=== PATIENT | male | born 1965 | race Caucasian/White ===

== ENCOUNTER → 2018-01-21 | Outpatient (CLI) | payer SELFPAY ==
[~2018-01-21] MED LIST: ACET-93 PO; ASPI-586 PO; PRAV20TA3 PO; TOPI25TA10 PO
== END ==
LOC: EDUNIT# 08:30 → CARD 08:42
PROVIDERS: ATTEND Nurse Practitioner Family
DX: R07.89 Other chest pain (principal); R06.09 Other forms of dyspnea; R00.2 Palpitations; I25.10 Atherosclerotic heart disease of native coronary artery without angina pectoris; E78.49 Other hyperlipidemia; Z86.73 Personal history of transient ischemic attack (TIA), and cerebral infarction without residual deficits
CPT/HCPCS: 93225; 93226

== ENCOUNTER 2018-01-22 06:52 | Day surgery (SDC) | payer SELFPAY ==
[2018-01-22] VITALS (9 sets, daily range): BP systolic 106–148; BP diastolic 81–94
[~2018-01-22] VITALS: Ht 172.7 cm; Wt 79.4 kg
--- OUTSIDE RECORDS SUMMARY | 2018-01-22 06:55 | XMS REPORT ---
Author Author MYRANDA RUSSELL Organization [facility] Address [address] [place] [address] Care Team Providers Care Documentation Engineer Name Role Phone WHITMORE, RUSSELL Unavailable PROBLEMS Type Condition ICD9-CM Code OIP25-IV Code Onset Dates Condition Status SNOMED Code Problem Cerebral infarction, unspecified I63.9 Active 99686058 Problem Moderate episode of recurrent major depressive disorder F33.1 Active 481776675 Problem History of [place] (myocardial infarction) I25.2 Active 085164504 Problem Severe episode of recurrent major depressive disorder, without psychotic features F33.2 Active 02150065 Problem Migraine with aura and without status migrainosus, not intractable G43.109 Active 3362017 ALLERGIES No Information ENCOUNTERS Encounter Location Date Diagnosis [facility] [address] [address] Jan, [facility] [address] [address] Nov, [facility] [id number] [place] [address] Oct, [facility] [id number] [place] [address] Oct, Cerebral infarction, unspecified I63.9 ; Moderate episode of recurrent major depressive disorder F33.1 ; Migraine with aura and without status migrainosus, not intractable G43.109 and History of [place] (myocardial infarction) I25.2 [facility] [address] [address] Oct, [facility] [address] [address] Oct, [facility] [address] [place] [address] Oct, 2017 Severe episode of recurrent major depressive disorder, without psychotic features F33.2 ; History of CVA (cerebrovascular accident) Z86.73 ; History of [place] (myocardial infarction) I25.2 and Migraine with aura and without status migrainosus, not intractable G43.109 IMMUNIZATIONS No Known Immunizations SOCIAL HISTORY Never Assessed REASON FOR VISIT intake PLAN OF CARE Activity Details Follow Up 2 Weeks Reason: VITAL SIGNS MEDICATIONS Medication Instructions Dosage Frequency Start Date End Date Duration Status Pravastatin Sodium 20 mg Orally Once a day 1 tablet 24h Oct, 30 day(s) Unknown Aspirin 81 mg Orally Once a day 1 tablet 24h Oct, 30 day(s) Unknown RESULTS No Results PROCEDURES Procedure Date Ordered Result Body Site Psych diagnostic evaluation, established patient Oct 25, 2017 INSTRUCTIONS MEDICATIONS ADMINISTERED No Known Medications MEDICAL (GENERAL) HISTORY Type Description Date Medical History stroke Surgical History No Surgical history information Hospitalization History stroke 2015
--- OUTSIDE RECORDS SUMMARY | 2018-01-22 06:55 | XMS REPORT ---
Author Author KWESI BLUNT Organization [facility] [place] Address [address] [place] [address] Care Team Providers Care Tape Librarian Name Role Phone KWESI BLUNT Unavailable PROBLEMS Type Condition ICD9-CM Code APX30-GQ Code Onset Dates Condition Status SNOMED Code Problem Cerebral infarction, unspecified I63.9 Active 49372377 Problem Moderate episode of recurrent major depressive disorder F33.1 Active 325821346 Problem History of [place] (myocardial infarction) I25.2 Active 241192631 Problem Severe episode of recurrent major depressive disorder, without psychotic features F33.2 Active 78315604 Problem Migraine with aura and without status migrainosus, not intractable G43.109 Active 0599175 ALLERGIES No Information ENCOUNTERS Encounter Location Date Diagnosis [facility] [place] [id number] [place] [address] Nov, [facility] [place] [id number] [place] [address] Oct, [facility] [place] [id number] [place] [address] Oct, Cerebral infarction, unspecified I63.9 ; Moderate episode of recurrent major depressive disorder F33.1 ; Migraine with aura and without status migrainosus, not intractable G43.109 and History of [place] (myocardial infarction) I25.2 [facility] [place] [id number] [place] [address] Oct, [facility] [place] [id number] [place] [address] Oct, [facility] [place] [id number] [place] [address] Oct, Severe episode of recurrent major depressive disorder, without psychotic features F33.2 ; History of CVA (cerebrovascular accident) Z86.73 ; History of [place] (myocardial infarction) I25.2 and Migraine with aura and without status migrainosus, not intractable G43.109 IMMUNIZATIONS No Known Immunizations SOCIAL HISTORY Never Assessed REASON FOR VISIT BH/AT phone response PLAN OF CARE VITAL SIGNS MEDICATIONS Unknown Medications RESULTS No Results PROCEDURES No Known procedures INSTRUCTIONS MEDICATIONS ADMINISTERED No Known Medications MEDICAL (GENERAL) HISTORY Type Description Date Medical History stroke Surgical History No Surgical history information Hospitalization History stroke 2015
--- OUTSIDE RECORDS SUMMARY | 2018-01-22 06:55 | XMS REPORT ---
Author Author KWESI BLUNT Organization [facility] Address [address] [place] [address] Care Team Providers Care Commercial Electrician Name Role Phone KWESI BLUNT Unavailable PROBLEMS Type Condition ICD9-CM Code HNX89-XC Code Onset Dates Condition Status SNOMED Code Problem Cerebral infarction, unspecified I63.9 Active 13836600 Problem Moderate episode of recurrent major depressive disorder F33.1 Active 442453904 Problem History of [place] (myocardial infarction) I25.2 Active 621665896 Problem Severe episode of recurrent major depressive disorder, without psychotic features F33.2 Active 77736560 Problem Migraine with aura and without status migrainosus, not intractable G43.109 Active 2876852 ALLERGIES No Known Allergies ENCOUNTERS Encounter Location Date Diagnosis [place] [id number] [place] [address] Jan, [place] [address] [address] Nov, [place] [address] [address] Nov, Migraine with aura and without status migrainosus, not intractable G43.109 and History of [place] (myocardial infarction) I25.2 [facility] [id number] [place] [address] Oct, [facility] [address] [address] Oct, Cerebral infarction, unspecified I63.9 ; Moderate episode of recurrent major depressive disorder F33.1 ; Migraine with aura and without status migrainosus, not intractable G43.109 and History of [place] (myocardial infarction) I25.2 [facility] [address] [address] Oct, [facility] [address] [facility] [id number] [address] Oct, [facility] [address] [facility] [id number] [address] Oct, Severe episode of recurrent major depressive disorder, without psychotic features F33.2 ; History of CVA (cerebrovascular accident) Z86.73 ; History of [place] (myocardial infarction) I25.2 and Migraine with aura and without status migrainosus, not intractable G43.109 IMMUNIZATIONS No Known Immunizations SOCIAL HISTORY Never Assessed REASON FOR VISIT follow up-sonaRMTracy , pt is still comlaining of having chest pains, pt states that he is still felling depressed PLAN OF CARE Activity Details Follow Up 2 Weeks Reason: VITAL SIGNS Height 5 ft 9 in in 2017-11-15 Weight 174.5 lbs 2017-11-15 Temperature 97.3 degrees Fahrenheit 2017-11-15 Heart Rate 85 bpm 2017-11-15 Respiratory Rate 18 2017-11-15 Oximetry on room air:97 % 2017-11-15 BMI 25.77 kg/m2 2017-11-15 Blood pressure systolic 120 mmHg 2017-11-15 Blood pressure diastolic 78 mmHg 2017-11-15 MEDICATIONS Medication Instructions Dosage Frequency Start Date End Date Duration Status Pravastatin Sodium 20 mg Orally Once a day 1 tablet 24h Oct, 30 day(s) Active Topamax 25 MG Orally Twice a day 1 tablet 12h 11 Nov, 2017 30 day(s) Active Aspirin 81 mg Orally Once a day 1 tablet 24h Oct, 30 day(s) Active RESULTS No Results PROCEDURES No Known procedures INSTRUCTIONS MEDICATIONS ADMINISTERED No Known Medications MEDICAL (GENERAL) HISTORY Type Description Date Medical History stroke Surgical History No Surgical history information Hospitalization History stroke 2015
--- OUTSIDE RECORDS SUMMARY | 2018-01-22 06:55 | XMS REPORT ---
Author Author KWESI BLUNT Organization [facility] Address [address] [place] [address] Care Team Providers Care Wind Field Manager Name Role Phone KWESI BLUNT Unavailable PROBLEMS Type Condition ICD9-CM Code UQP68-UV Code Onset Dates Condition Status SNOMED Code Problem Cerebral infarction, unspecified I63.9 Active 71933290 Problem Moderate episode of recurrent major depressive disorder F33.1 Active 830760142 Problem History of [place] (myocardial infarction) I25.2 Active 902204703 Problem Severe episode of recurrent major depressive disorder, without psychotic features F33.2 Active 28176296 Problem Migraine with aura and without status migrainosus, not intractable G43.109 Active 3521421 ALLERGIES No Information ENCOUNTERS Encounter Location Date Diagnosis [place] [id number] [place] [address] Jan, [place] [address] [address] Nov, [place] [address] [address] Nov, Migraine with aura and without status migrainosus, not intractable G43.109 and History of [place] (myocardial infarction) I25.2 [facility] [id number] [place] [address] Oct, [facility] [address] [address] Oct, Cerebral infarction, unspecified I63.9 ; Moderate episode of recurrent major depressive disorder F33.1 ; Migraine with aura and without status migrainosus, not intractable G43.109 and History of [place] (myocardial infarction) I25.2 [facility] [address] [address] Oct, [facility] [address] [facility] [id number] [place] [address] Oct, [facility] [address] [facility] [id number] [place] [address] Oct, Severe episode of recurrent major depressive disorder, without psychotic features F33.2 ; History of CVA (cerebrovascular accident) Z86.73 ; History of [place] (myocardial infarction) I25.2 and Migraine with aura and without status migrainosus, not intractable G43.109 IMMUNIZATIONS No Known Immunizations SOCIAL HISTORY Never Assessed REASON FOR VISIT lab results - Darrick LITTLE PLAN OF CARE VITAL SIGNS MEDICATIONS Unknown Medications RESULTS No Results PROCEDURES No Known procedures INSTRUCTIONS MEDICATIONS ADMINISTERED No Known Medications MEDICAL (GENERAL) HISTORY Type Description Date Medical History stroke Surgical History No Surgical history information Hospitalization History stroke 2015
--- OUTSIDE RECORDS SUMMARY | 2018-01-22 06:55 | XMS REPORT ---
Author Author KWESI BLUNT Organization [facility] Address [address] [place] [address] Care Team Providers Care Metal Smelter Name Role Phone KWESI BLUNT Unavailable PROBLEMS Type Condition ICD9-CM Code VTU26-FK Code Onset Dates Condition Status SNOMED Code Problem Cerebral infarction, unspecified I63.9 Active 50304323 Problem Moderate episode of recurrent major depressive disorder F33.1 Active 387657016 Problem History of [place] (myocardial infarction) I25.2 Active 410178329 Problem Severe episode of recurrent major depressive disorder, without psychotic features F33.2 Active 23689929 Problem Migraine with aura and without status migrainosus, not intractable G43.109 Active 7549362 ALLERGIES No Known Allergies ENCOUNTERS Encounter Location Date Diagnosis [facility] [id number] [place] [address] Nov, [facility] [id number] [place] [address] Oct, [facility] [id number] [place] [address] Oct, Cerebral infarction, unspecified I63.9 ; Moderate episode of recurrent major depressive disorder F33.1 ; Migraine with aura and without status migrainosus, not intractable G43.109 and History of [place] (myocardial infarction) I25.2 [facility] [id number] [place] [address] Oct, [facility] [id number] [place] [address] Oct, [facility] [id number] [place] [address] Oct, Severe episode of recurrent major depressive disorder, without psychotic features F33.2 ; History of CVA (cerebrovascular accident) Z86.73 ; History of [place] (myocardial infarction) I25.2 and Migraine with aura and without status migrainosus, not intractable G43.109 IMMUNIZATIONS No Known Immunizations SOCIAL HISTORY Never Assessed REASON FOR VISIT Establish Care-LIAM magallanes, patient states he had a stroke a couple of years ago , lately he hasn't been able to focus on things.its been hard for him to write, having really bad headaches , patient complains about using his right side from the stroke, very emotional PLAN OF CARE Activity Details Follow Up prn. 3 months or as indicated by lab Reason: VITAL SIGNS Weight 170.8 lbs 2017-10-17 Temperature 97.0 degrees Fahrenheit 2017-10-17 Heart Rate 85 bpm 2017-10-17 Respiratory Rate 18 2017-10-17 Oximetry on room air:99 % 2017-10-17 Blood pressure systolic 120 mmHg 2017-10-17 Blood pressure diastolic 74 mmHg 2017-10-17 MEDICATIONS Unknown Medications RESULTS No Results PROCEDURES Procedure Date Ordered Result Body Site COMPLETE CBC W/AUTO DIFF WBC Oct 17, 2017 LIPID PANEL Oct 17, 2017 COMPREHEN METABOLIC PANEL Oct 17, 2017 ASSAY OF FREE THYROXINE Oct 17, 2017 ASSAY THYROID STIM HORMONE Oct 17, 2017 INSTRUCTIONS MEDICATIONS ADMINISTERED No Known Medications MEDICAL (GENERAL) HISTORY Type Description Date Medical History stroke Surgical History No Surgical history information Hospitalization History stroke 2015
[2018-01-22] MEDS ORDERED: NS IV 1000 ML 1,000 ML IV SCH ×2 (07:00→10:17)
[2018-01-22] MEDS ORDERED: LIDOCAINE 1% INJ 20 ML 20 ML VIAL ONE (07:01)
[2018-01-22] MEDS ORDERED: HEParin (CATH LAB) 2,000 ML IV ONE (07:01)
[2018-01-22] MEDS ORDERED: NS IV 1000 ML 1,000 ML ONE (07:01)
[2018-01-22] MEDS ORDERED: ASPI-586 PO (07:26)
[2018-01-22] MEDS ORDERED: ACET-93 PO (07:26)
[2018-01-22] MEDS ORDERED: TOPI25TA10 PO (07:26)
[2018-01-22] MEDS ORDERED: PRAV20TA3 PO (07:26)
[2018-01-22 07:32] LABS: HEMOGLOBIN 17.8 G/DL (13.3-17.7); MEAN PLATELET VOLUME 9.8 FL (7.4-10.4); RED BLOOD COUNT 5.64 10^6/uL (4.35-5.85); RED CELL DISTRIBUTION WIDTH 14.1 % (10.0-14.5); WHITE BLOOD COUNT 10.5 10^3/uL (4.3-11.0)
[2018-01-22 07:41] LABS: PROTHROMBIN TIME PATIENT 13.4 SEC (12.2-14.7)
[2018-01-22] MEDS ORDERED: CATHETER FLUSH 10 ML SYR IV PRN (07:45)
[2018-01-22] MEDS ORDERED: FLU QUADRIvalent (5+ YOA) 2018-2019 (AFLURIA) 0.5 ML IM ONE (07:45)
[2018-01-22 07:49] LABS: ALANINE AMINOTRANSFERASE 31 U/L (0-55); ALBUMIN 4.3 GM/DL (3.2-4.5); ALKALINE PHOSPHATASE 80 U/L (40-136); BILIRUBIN,TOTAL 0.9 MG/DL (0.1-1.0); BUN/CREATININE RATIO 17; CALCIUM 9.1 MG/DL (8.5-10.1); CARBON DIOXIDE 24 MMOL/L (21-32); CHLORIDE 108 MMOL/L (98-107); CHOLESTEROL 176 MG/DL (< 200); CREATININE SERUM 0.93 MG/DL (0.60-1.30); GFR ESTIMATED > 60; GLUCOSE 85 MG/DL (70-105); HDL CHOLESTEROL 40 MG/DL (40-60); POTASSIUM 4.3 MMOL/L (3.6-5.0); SODIUM 142 MMOL/L (135-145); TOTAL PROTEIN 7.1 GM/DL (6.4-8.2); TRIGLYCERIDES 89 MG/DL (<150); VLDL CHOLESTEROL 18 MG/DL (5-40)
[2018-01-22] MEDS ORDERED: fentaNYL INJECTION 100 MCG/2 ML AMP ONE (09:37)
[2018-01-22] MEDS ORDERED: MIDAZOLAM 5 MG/5 ML (VERSED) VIAL ONE (09:37)
--- NOTE | 2018-01-22 09:51 | Cardiac Procedure Note-CS/ASA ---
Pre-Procedure Note Pre-Op Procedure Note H&P Reviewed The H&P was reviewed, patient examined and no changes noted. Date H&P Reviewed: Jan 22, 2018 Time H&P Reviewed: 09:51 Conscious Sedation Pre-Proced Time 09:51 ASA Score 3 For ASA 3 and 4: Consider anesthesia and medical clearance. Also, for patients with a history of failed moderate sedation consider anesthesia. Airway Lungs Heart ASA score ASA 1: a normal healthy patient ASA 2: a patient with a mild systemic disease (mid diabetes, controlled hypertension, obesity ASA 3: a patient with a severe systemic disease that limits activity (angina , COPD, prior Myocardial infarction) ASA 4: a patient with an incapacitating disease that is a constant threat to life (CHF, renal failure) ASA 5: a moribund patient not expected to survive 24 hrs. (ruptured aneurysm) ASA 6: a declared brain patient whose organs are being harvested. For emergent operations, add the letter E after the classification Mallampati Classification Grade 2 Sedation Plan Analgesia, Amnesia, Plan communicated to team members, Discussed options with patient/fam, Discussed risks with patient/fam The patient is an appropriate candidate to undergo the planned procedure, sedation, and anesthesia. The patient immediately re-assessed prior to indication. MIGUEL YOUNG MD FACP FAC CCDS Jan 22, 2018 09:51
--- NOTE | 2018-01-22 10:22 | Discharge Inst-Cardiology ---
Discharge Inst-Cardiac Discharge Medications Continued Medications: Acetaminophen (Acetaminophen) 500 Mg Tablet 500 MG PO PRN PRN for PAIN-MILD, TAB Aspirin (Aspir 81) 81 Mg Tablet.dr 81 MG PO DAILY, TAB Pravastatin Sodium (Pravastatin Sodium) 20 Mg Tablet 20 MG PO DAILY, TAB Topiramate (Topiramate) 25 Mg Tablet 25 MG PO BID, TAB Patient Instructions Patient Instructions: NO SMOKING OR TOBACCO USE Orders-Post D/C & Referrals Pneu Vac Indicated: Yes MIGUEL YOUNG MD FACP FAC CCDS Jan 22, 2018 10:22
--- NOTE | 2018-01-22 10:23 | Discharge Inst-Post CATH ---
Discharge Inst-CATH Post Cardiac Cath D/C Inst Follow Up/Plan F/u with Dr Parr in 3-4 weeks CARDIAC CATH DISCHARGE INSTRUCTIONS *Hold Metformin for 48 hours post heart cath. ACTIVITY * Go Home directly and rest. * Limit activity of the leg (or wrist if it was used) for 7 days including aerobics, swimming, jogging, bicycling, etc. * Restrict stair-climbing for 7 days if possible, if not, climb up with your non -cath leg, then bring together on the same step. * Avoid lifting, pushing, pulling or excessive movement of the affected extremity for 7 days. * Customary sexual activity may be resumed after 2 days-use caution not to use a position that strains or causes pain to the affected extremity. * No driving for 24 hours. * NO SMOKING. * Avoid straining for bowel movements for 7 days. * Gentle walking on level ground is allowed. * Returning to work will depend on the type of procedure and the results. Your doctor will discuss this with you. CALL YOUR DOCTOR FOR ANY OF THE FOLLOWING: *If bleeding from the puncture site occurs- Apply gentle pressure to site with clean cloth and call your doctor or EMS. * If a knot or lump forms under the skin, increases in size, or causes pain. * If bruising appears to be worsening or moving further down your leg instead of disappearing. * Temperature above 101 F. CARE OF YOUR GROIN INCISION; * Bruising or purple discoloration of the skin near the puncture site is common. * You may shower only, no bathtub bathing for 5 days. Be careful to avoid slipping as your leg may feel stiff. * If a closure device was used on your femoral artery, please see the attached guide regarding care of the device and your leg. * Leave the dressing on, until removed by office staff. CARE OF YOUR WRIST INCISION; * Bruising or purple discoloration of the skin near the puncture site is common. * You may shower. * DO NOT submerge wrist. * Leave dressing on, until removed by office staff.. MIGUEL PARR MD [facility] CCDS Jan 22, 2018 10:23
[2018-01-22] MEDS ORDERED: PATIENT MAY USE OWN MEDS, ALL PO SCH (10:30)
--- NOTE | 2018-01-22 11:41 | CARDIAC CATHETERIZATION ---
DATE OF SERVICE: CARDIAC CATHETERIZATION REPORT The patient is a 53-year-old man with a known history of coronary artery disease. He reports a history of a myocardial infarction in 2010 in [facility]. He states that he had four stents placed at that time. He has been experiencing chest discomfort radiating to the left shoulder. He has multiple coronary artery disease risk factors. Cardiac catheterization was carried out today after having obtained an informed consent. PROCEDURE: He was brought to the cardiac catheterization laboratory in a fasting state. Right groin was prepared and draped in the usual sterile fashion. Lidocaine 1% for local anesthesia. Modified Seldinger technique was used to advance a 5-Zimbabwean sheath in the right femoral artery, 5-Zimbabwean JL4 catheter for the left coronary angiography, 5-Zimbabwean JR4 catheter for right coronary angiography, 5-Zimbabwean pigtail catheter was used for left heart catheterization and left ventricular angiography. Pigtail was pulled back to the aortic root and aortic root angiography was performed. Pigtail was removed. Angiography of the right femoral artery was carried out through the sheath. Mynx was used to achieve hemostasis. He tolerated the procedure well. HEMODYNAMICS: Left ventricular end-diastolic pressure following coronary angiography was 12 mmHg. There was no significant pressure gradient on pullback across the aortic valve. Ascending aortic pressure was 114/78 with a mean of 81 mmHg. CORONARY ANGIOGRAPHY: Left main coronary artery does not exhibit significant disease. Left anterior descending artery does not exhibit significant obstructive disease. There is mild haziness in the proximal portion of the left anterior descending artery. No distinct stents are visualized. Left circumflex artery does not exhibit significant disease. Right coronary artery is dominant and does not exhibit significant disease. LEFT VENTRICULAR ANGIOGRAPHY: Left ventricular angiography was carried out in the right anterior oblique projection. There is apical dyskinesis. There appears to be organized/scarred thrombus in the apex. Global left ventricular systolic function is well preserved. Left ventricular ejection fraction estimated to be 50% to 55%. There does not appear to be significant mitral regurgitation. AORTIC ARCH ANGIOGRAPHY: Aortic root angiography did not indicate any significant thoracic aortic aneurysm or dissection. No significant aortic regurgitation is identified. CONCLUSIONS: 1. Mild coronary artery disease. 2. Evidence of an apical myocardial infarction with apical dyskinesis. 3. Well-preserved global left ventricular systolic function with an ejection fraction of 50 to 55%. 4. Normal left ventricular end-diastolic pressure. DISCUSSION AND RECOMMENDATIONS: Based on the results of the study, it appears appropriate to continue a conservative approach. Risk factor modification has been reviewed with him. He has been advised compliance with medications. He has been advised immediate and complete cessation of tobacco use. Job ID: [id number] DocumentID: [id number] Dictated Date: 01/22/2018 10:15:13 Dry Chain Puller Date: 01/22/2018 11:41:04 Dictated By: MIGUEL YOUNG MD, MA, FACP, FACC, MTDD
== END 2018-01-22 13:48 | disposition home or self-care (01) ==
LOC: CATH 06:52 → SDC 10:33 → CATH 13:48
PROVIDERS: ATTEND Internal Medicine Cardiovascular Disease
DX: I25.10 Atherosclerotic heart disease of native coronary artery without angina pectoris (principal); R00.2 Palpitations; R06.09 Other forms of dyspnea; E78.49 Other hyperlipidemia; F17.210 Nicotine dependence, cigarettes, uncomplicated; I25.2 Old myocardial infarction; Z86.73 Personal history of transient ischemic attack (TIA), and cerebral infarction without residual deficits; Z79.82 Long term (current) use of aspirin; Z79.899 Other long term (current) drug therapy
CPT/HCPCS: 36415; 36430; 80053; 80061; 85027; 85610; 85730; 87081; 93458; 93567

== ENCOUNTER 2018-02-01 14:41 | Emergency (ER) | payer SELFPAY ==
[~2018-02-01] VITALS: Ht 175.3 cm; Wt 79.4 kg
--- NOTE | 2018-02-01 15:09 | ED Integumentary General ---
General Chief Complaint: Skin/Wound Problems Stated Complaint: WOUND INFECTION Nursing Triage Note: PT HAD A HEART CATH DONE APPX 1 WEEK AGO. STATES THE AREA HAS DEVELOPED A KNOT AND BRUISING. DENIES ANY OTHER COMPLAINTS. Source: patient Exam Limitations: no limitations History of Present Illness Date Seen by Provider: Feb 01, 2018 Time Seen by Provider: 15:08 Initial Comments To ER with a tender nodule in the right groin. He had a heart catheter done here using the right groin as access one week ago. She had a small nodule at the time states it's become more tender and a little bit larger since then. No lightheadedness fevers or abdominal pain. Timing/Duration: just prior to arrival Severity: moderate Location: extremities (right groin) Possible Cause: no cause identified Allergies and Home Medications Allergies Coded Allergies: No Known Drug Allergies (Unverified , 01/22/18) Home Medications Acetaminophen 500 Mg Tablet, 500 MG PO PRN PRN for PAIN-MILD, (Reported) Aspirin 81 Mg Tablet.dr, 81 MG PO DAILY, (Reported) Pravastatin Sodium 20 Mg Tablet, 20 MG PO DAILY, (Reported) Topiramate 25 Mg Tablet, 25 MG PO BID, (Reported) Patient Home Medication List Home Medication List Reviewed: Yes Review of Systems Review of Systems Constitutional: see HPI; No chills, No fever EENTM: see HPI Respiratory: no symptoms reported Cardiovascular: no symptoms reported Genitourinary: no symptoms reported Musculoskeletal: see HPI Skin: no symptoms reported Psychiatric/Neurological: No Symptoms Reported Endocrine: No Symptoms Reported Hematologic/Lymphatic: No Symptoms Reported Past Chopbqw-Qsvktz-Xyirar Hx Patient Social History Type Used: Cigarettes Recent Foreign Travel: No Contact w/Someone Who Travel: No Recent Infectious Disease Expo: No Past Medical History Surgeries: Yes Coronary Stent Respiratory: No Cardiac: Yes Coronary Artery Disease, Heart Attack Neurological: Yes Stroke Gastrointestinal: No Endocrine: No Cancer: No Physical Exam Vital Signs Vital Signs - First Documented 02/01/18 14:50 Temp 98.2 Pulse 87 Resp 16 B/P (MAP) 127/79 (95) Pulse Ox 95 O2 Delivery Room Air Capillary Refill : Less Than 3 Seconds General Appearance: WD/WN, no apparent distress Neck: non-tender, full range of motion Respiratory: no respiratory distress, no accessory muscle use Neurologic/Psychiatric: alert, normal mood/affect Skin: normal color, warm/dry, other (minimal yellow/ brownish discoloration of the right groin at the puncture site consistent with resolving ecchymosis. There is a nickel-sized nodule in the right groin tender to palpation but without pulsatile flow palpable. We'll obtain an ultrasound.) Progress/Results/Core Measures Results/Orders My Orders Orders - DIANELYS NARVAEZ APRN [facility] Soft Tissue Unlisted [id number] (02/01/18 15:07) Vital Signs/I&O 02/01/18 02/01/18 14:50 16:17 Temp 98.2 98.2 Pulse 87 87 Resp 16 16 B/P (MAP) 127/79 (95) 127/79 (95) Pulse Ox 95 95 O2 Delivery Room Air Blood Pressure Mean: 95 Departure Impression Primary Impression: Hematoma Disposition: 01 HOME, SELF-CARE Condition: Stable Departure-Patient Inst. Decision time for Depature: 15:11 Referrals: NO,LOCAL PHYSICIAN (PCP/Family) Primary Care Physician Patient Instructions: HEMATOMA Add. Discharge Instructions: 1. This will resolve over the next 2-3 weeks. Return to ER for any lightheadedness passing out severe pain or other concerns. All discharge instructions reviewed with patient and/or family. Voiced understanding. DIANELYS NARVAEZ APRN Feb 01, 2018 15:09
[2018-02-01 16:17] VITALS: BP 127/79
--- NOTE | 2018-02-01 20:53 | Diagnostic Imaging Report ---
INDICATION: Wound infection in the right inguinal region. Patient is status post heart catheterization one week ago. EXAMINATION: Sonographic interrogation of the right groin was performed. FINDINGS: Lymph nodes are identified in the right groin. The largest measures 1.3 x 0.5 x 2.7 cm. Second lymph node measures 1.7 x 0.5 x 0.7 cm. These have fatty tiarra and thin cortex. No fluid collections are seen. IMPRESSION: Mildly prominent right groin lymph nodes. The study is otherwise unremarkable. Dictated by: Dictated on workstation # [id number]
== END 2018-02-01 16:18 | disposition home or self-care (01) ==
LOC: EDUNIT# 14:41 → ER 14:43
DX: M79.81 Nontraumatic hematoma of soft tissue (principal); I25.10 Atherosclerotic heart disease of native coronary artery without angina pectoris; I25.2 Old myocardial infarction; Z79.82 Long term (current) use of aspirin; Z95.5 Presence of coronary angioplasty implant and graft; Z86.73 Personal history of transient ischemic attack (TIA), and cerebral infarction without residual deficits
CPT/HCPCS: 76999; 99282

== ENCOUNTER 2019-07-25 02:04 | Inpatient (IN) | payer SELFPAY ==
[2019-07-25] VITALS (17 sets, daily range): BP systolic 87–151; BP diastolic 53–94
[~2019-07-25] VITALS: Ht 170 cm; Wt 79.7 kg
--- NOTE | 2019-07-25 02:10 | NUR ---
PT TO CT ACCOMPANIED BY HS/RAD.
--- OUTSIDE RECORDS SUMMARY | 2019-07-25 02:11 | XMS REPORT | Continuity of Care Document ---
Author Organization Unknown Address Unknown Phone Unavailable Allergies Active Description Code Type Severity Reaction Onset Reported/Identified Relationship to Patient Clinical Status Yes No Known Drug Allergies No Kno wn Drug Allergies Drug Allergy Unknown N/A 11/17/2009 Yes No Known Allergies Drug Allerg y 2012 Yes No Known Drug Allergies Drug Allergy 2012 Yes No Known Food Allergies Food Allergy 2012 Yes No Known Drug Allergies [id number] Drug Allergy Unknown N/A 01/22/2018 Medications There is no data. Problems Date Dx Coded Attending Type Code Diagnosis Diagnosed By 10/06/2015 Eugenie VINSON Rosario P F E78. 5 HYPERLIPIDEMIA, UNSPECIFIED 10/06/2015 Eugenie VINSON Rosario P F F12. 10 CANNABIS ABUSE, UNCOMPLICATED 10/06/2015 Eugenie VINSON Rosario P F F17. 200 NICOTINE DEPENDENCE, UNSPECIFIED, UNCOMPLICATED 10/06/2015 Eugenie VINSON, Rosario P F F43. 8 OTHER REACTIONS TO SEVERE STRESS 10/06/2015 Eugenie VINSON Rosario P F I25. 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 9 CEREBRAL INFARCTION, UNSPECIFIED 10/06/2015 Eugenie VINSON Rosario P F R00. 1 BRADYCARDIA, UNSPECIFIED 10/06/2015 Eugenie VINSON Rosario P F R47. 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 01/22/2018 HECTOR VINSON FACC, ALI FACP CCDS Ot Z79.899 OTHER PENITENTIARY (CURRENT) DRUG THERAPY 01/22/2018 HECTOR VINSON FACC, ALI FACP CCDS Ot Z86.73 PRSNL HX OF TIA (TIA), AND CEREB INFRC W 01/23/2018 BAIMA, ALESHA L AUTO BUMPER MECHANIC Ot E78.49 OTHER HYPERLIPIDEMIA 01/23/2018 BAIMA, ALESHA L AUTO BUMPER MECHANIC Ot I25.10 ATHSCL HEART DISEASE OF [place] CORONARY 01/23/2018 BAIMA, ALESHA L AUTO BUMPER MECHANIC Ot R00.2 PALPITATIONS 01/23/2018 BAIMA, ALESHA L AUTO BUMPER MECHANIC Ot R06.09 OTHER FORMS OF DYSPNEA 01/23/2018 BAIMA, ALESHA L AUTO BUMPER MECHANIC Ot R07.89 OTHER CHEST PAIN 01/23/2018 BAIMA, ALESHA L AUTO BUMPER MECHANIC Ot Z86.73 PRSNL HX OF TIA (TIA), AND CEREB INFRC W 01/23/2018 BAIMA, ALESHA L AUTO BUMPER MECHANIC Ot E78.49 OTHER HYPERLIPIDEMIA 01/23/2018 BAIMA, ALESHA L AUTO BUMPER MECHANIC Ot I25.10 ATHSCL HEART DISEASE OF [place] CORONARY 01/23/2018 BAIMA, ALESHA L AUTO BUMPER MECHANIC Ot R00.2 PALPITATIONS 01/23/2018 BAIMA, ALESHA L AUTO BUMPER MECHANIC Ot R06.09 OTHER FORMS OF DYSPNEA 01/23/2018 BAIMA, ALESHA L AUTO BUMPER MECHANIC Ot R07.89 OTHER CHEST PAIN 01/23/2018 BAIMA, ALESHA L AUTO BUMPER MECHANIC Ot Z86.73 PRSNL HX OF TIA (TIA), AND CEREB INFRC W 02/01/2018 BAIMA, ALESHA L AUTO BUMPER MECHANIC Ot E78.49 OTHER HYPERLIPIDEMIA 02/01/2018 BAIMA, ALESHA L AUTO BUMPER MECHANIC Ot I25.10 ATHSCL HEART DISEASE OF [place] CORONARY 02/01/2018 BAIMA, ALESHA L AUTO BUMPER MECHANIC Ot R00.2 PALPITATIONS 02/01/2018 BAIMA, ALESHA L AUTO BUMPER MECHANIC Ot R06.09 OTHER FORMS OF DYSPNEA 02/01/2018 BAIMA, ALESHA L AUTO BUMPER MECHANIC Ot R07.89 OTHER CHEST PAIN 02/01/2018 ALESHA SHORT AUTO BUMPER MECHANIC Ot Z86.73 PRSNL HX OF TIA (TIA), AND CEREB INFRC W 02/01/2018 ALESHA SHORT AUTO BUMPER MECHANIC Ot E78.49 OTHER HYPERLIPIDEMIA 02/01/2018 ALESHA SHORT AUTO BUMPER MECHANIC Ot I25.10 ATHSCL HEART DISEASE OF [place] CORONARY 02/01/2018 ALESHA SHORT AUTO BUMPER MECHANIC Ot R00.2 PALPITATIONS 02/01/2018 ALESHA SHORT AUTO BUMPER MECHANIC Ot R06.09 OTHER FORMS OF DYSPNEA 02/01/2018 ALESHA SHORT AUTO BUMPER MECHANIC Ot R07.89 OTHER CHEST PAIN 02/01/2018 ALESHA SHORT AUTO BUMPER MECHANIC Ot Z86.73 PRSNL HX OF TIA (TIA), AND CEREB INFRC W 02/01/2018 DIANELYS NARVAEZ APRN Ot I25.10 ATHSCL HEART DISEASE OF [place] CORONARY 02/01/2018 DIANELYS NARVAEZ APRN Ot I25 .2 OLD MYOCARDIAL INFARCTION 02/01/2018 DIANELYS NARVAEZ APRN Ot M79.81 NONTRAUMATIC HEMATOMA OF SOFT TISSUE 02/01/2018 DIANELYS NARVAEZ APRN Ot R10.31 RIGHT LOWER QUADRANT PAIN 02/01/2018 DIANELYS NARVAEZ APRN Ot Z79.82 PENITENTIARY (CURRENT) USE OF ASPIRIN 02/01/2018 DIANELYS NARVAEZ APRN Ot Z86.73 PRSNL HX OF TIA (TIA), AND CEREB INFRC W 02/01/2018 DIANELYS NARVAEZ APRN Ot Z95 .5 PRESENCE OF CORONARY ANGIOPLASTY IMPLANT 02/07/2018 DIANELYS NARVAEZ APRN Ot I25.10 ATHSCL HEART DISEASE OF [place] CORONARY 02/07/2018 DIANELYS NARVAEZ APRN Ot I25 .2 OLD MYOCARDIAL INFARCTION 02/07/2018 DIANELYS NARVAEZ APRN Ot M79.81 NONTRAUMATIC HEMATOMA OF SOFT TISSUE 02/07/2018 DIANELYS NARVAEZ APRN Ot R10.31 RIGHT LOWER QUADRANT PAIN 02/07/2018 DIANELYS NARVAEZ APRN Ot 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 02/07/2018 DIANELYS NARVAEZ APRN Ot Z86.73 PRSNL HX OF TIA (TIA), AND CEREB INFRC W 02/07/2018 DIANELYS NARVAEZ APRN Ot Z95 .5 PRESENCE OF CORONARY ANGIOPLASTY IMPLANT 02/28/2018 BAIALESHA LITTLE L AUTO BUMPER MECHANIC Ot E78.49 OTHER HYPERLIPIDEMIA 02/28/2018 BAIMA ALESHA L AUTO BUMPER MECHANIC Ot I25.10 ATHSCL HEART DISEASE OF [place] CORONARY 02/28/2018 BAIMAALESHA L AUTO BUMPER MECHANIC Ot R00.2 PALPITATIONS 02/28/2018 BAIMA, ALESHA L AUTO BUMPER MECHANIC Ot R06.09 OTHER FORMS OF DYSPNEA 02/28/2018 BAIMA, ALESHA L AUTO BUMPER MECHANIC Ot R07.89 OTHER CHEST PAIN 02/28/2018 BAIMA, ALESHA L AUTO BUMPER MECHANIC Ot Z86.73 PRSNL HX OF TIA (TIA), AND CEREB INFRC W 03/11/2018 BAIMAALESHA AUTO BUMPER MECHANIC Ot E78.49 OTHER HYPERLIPIDEMIA 03/11/2018 BAIMA ALESHA L AUTO BUMPER MECHANIC Ot I25.10 ATHSCL HEART DISEASE OF [place] CORONARY 03/11/2018 BAIMA ALESHA L AUTO BUMPER MECHANIC Ot R00.2 PALPITATIONS 03/11/2018 BAIMA, ALESHA L AUTO BUMPER MECHANIC Ot R06.09 OTHER FORMS OF DYSPNEA 03/11/2018 BAIMA, ALESHA L AUTO BUMPER MECHANIC Ot R07.89 OTHER CHEST PAIN 03/11/2018 BAISIDNEY ALESHA L AUTO BUMPER MECHANIC Ot Z86.73 PRSNL HX OF TIA (TIA), AND CEREB INFRC W 03/12/2018 DIANELYS NARVAEZ APRN Ot I25.10 ATHSCL HEART DISEASE OF [place] CORONARY 03/12/2018 DIANELYS NARVAEZ APRN Ot I25 .2 OLD MYOCARDIAL INFARCTION 03/12/2018 DIANELYS NARVAEZ APRN Ot M79.81 NONTRAUMATIC HEMATOMA OF SOFT TISSUE 03/12/2018 DIANELYS NARVAEZ APRN Ot R10.31 RIGHT LOWER QUADRANT PAIN 03/12/2018 DIANELYS NARVAEZ APRN Ot 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 03/12/2018 DIANELYS NARVAEZ APRN Ot Z86.73 PRSNL HX OF TIA (TIA), AND CEREB INFRC W 03/12/2018 DIANELYS NARVAEZ APRN Ot Z95 .5 PRESENCE OF CORONARY ANGIOPLASTY IMPLANT Procedures Code Description Performed By Blul garcia On [id number] IN [facility] THROMBOLYTIC IN PERIPH VEIN, PERC Eugenie MD, Rosario P 10/06/2015 Results Test Result Range CBC W/DIFF - 10/06/15 21:45 BASOPHIL # 0.1 k/cumm 0.0-0.2 BASOPHIL % 1 % 0-1 EOSINOPHIL # 0.5 k/cumm 0.1-0.5 EOSINOPHIL % 5 % 2-4 GRANULOCYTE # 6.2 k/cumm 2.0-9.0 GRANULOCYTE % 57 % 50-75 LYMPHOCYTE # 3.0 k/cumm 1.0-4.0 LYMPHOCYTE % 28 % 20-30 MEAN CELL HGB 31.2 pg 27.0-33.0 MEAN CELL HGB CONCENTRATION 35.5 g/dL 32 .0-37.0 MEAN CELL VOLUME 87.9 fl 80.0-100.0 MONOCYTE # 1.1 k/cumm 0.1-1.0 MONOCYTE % 10 % 4-6 RED BLOOD CELL 5.80 m/cumm 4.00-6.00 RED CELL DISTRIBUTION WIDTH 14.1 % 11 .0-15.6 WHITE BLOOD CELL 10.9 k/cumm 5.0-10.0 HEMOGLOBIN 18.1 gm/dL 14.0-18.0 HEMATOCRIT 51.0 % 40.0-54.0 PLATELET COUNT 241 k/cumm 150-400 PROTHROMBIN TIME WITH INR - 10/06/15 21: 45 INTERNATIONAL NORMAL RATIO 0.9 0.9 -1.1 PROTHROMBIN TIME 10.4 sec 10.0-12.9 ACETAMINOPHEN (TYLENOL) - 10/06/15 21:45 ACETAMINOPHEN (TYLENOL) < 2 mcg/mL 10-30 SALICYLATE (ASPIRIN) - 10/06/15 21:45 SALICYLATE 3.0 mg/dL 2.8-29.0 CHEM/HEM PROFILE-BEDSIDE - 10/06/15 21:4 6 POTASSIUM 4.1 mmol/L 3.5-5.3 METHOD Bedside ANION GAP 18 mmol/L 10-20 METHOD Bedside GLUCOSE 94 mg/dL 70-99 BLOOD UREA NITROGEN 22 mg/dL 7-20 CREATININE 1.1 mg/dL 0.7-1.3 HEMOGLOBIN 17.7 gm/dL 14.0-18.0 HEMATOCRIT 52.0 % 40.0-54.0 SODIUM 141 mmol/L 135-148 CHLORIDE 99 mmol/L 98-110 CARBON DIOXIDE 28 mmol/L 21-32 CALCIUM IONIZED 4.5 mg/dL 4.5-5.3 TROPONIN I BEDSIDE - 10/06/15 21:48 METHOD Bedside TROPONIN I < 0.04 ng/mL < 0.11 UR DRUGS OF ABUSE SCREEN - 10/06/15 23:5 6 UR AMPHETAMINES SCREEN NEG (<1000 ng/mL) NEGATIVE UR BARBITURATE SCREEN NEG (< 200 ng/mL) NEGATIVE DRUGS OF ABUSE SCREEN COMMENT UR OPIATES SCREEN NEG (< 300 ng/mL) NE GATIVE UR PHENCYCLIDINE (PCP) SCREEN NEG (< 25 ng/mL) NEGATIVE UR CANNABINOIDS (THC) SCREEN POS (> 50 ng/mL) NEGATIVE UR COCAINE METABOLITE SCREEN NEG (< 300 ng/mL) NEGATIVE UR METHADONE SCREEN NEG (< 300 ng/mL) NEGATIVE UR BENZODIAZEPINE SCREEN NEG (< 200 ng/mL) NEGATIVE URINALYSIS, ROUTINE - 10/07/15 00:07 UA LEUKOCYTE ESTERASE DIPSTICK NEGATIVE NEGATIVE UA NITRITE DIPSTICK NEGATIVE NEGATIVE UA PROTEIN DIPSTICK NEGATIVE NEGATIVE UA GLUCOSE DIPSTICK NEGATIVE NEGATIVE UA KETONE DIPSTICK NEGATIVE NEGATIVE UA UROBILINOGEN DIPSTICK NORMAL ASHLEY L UA BILIRUBIN DIPSTICK NEGATIVE NEGATIVE UA BLOOD DIPSTICK TRACE NEGATIVE UA SPECIFIC GRAVITY 1.020 1.015-1.02 5 UR PH 6.5 5.0-7.0 UA MICROSCOPIC - 10/07/15 00:07 UA RBC 0-3 rbc/hpf 0 - 3 UA VOLUME FOR EXAM 12.0 mL (12mL STD) UA WBC 0 wbc/hpf 0 - 5 CBC W/DIFF - 10/07/15 04:24 EOSINOPHIL # 0.5 k/cumm 0.1-0.5 EOSINOPHIL % 4 % 2-4 GRANULOCYTE # 7.7 k/cumm 2.0-9.0 GRANULOCYTE % 67 % 50-75 LYMPHOCYTE # 2.2 k/cumm 1.0-4.0 LYMPHOCYTE % 19 % 20-30 MEAN CELL HGB 31.5 pg 27.0-33.0 MEAN CELL HGB CONCENTRATION 36.0 g/dL 32 .0-37.0 MEAN CELL VOLUME 85.0 fl 80.0-100.0 MONOCYTE # 1.1 k/cumm 0.1-1.0 MONOCYTE % 10 % 4-6 RED BLOOD CELL 5.39 m/cumm 4.00-6.00 RED CELL DISTRIBUTION WIDTH 13.8 % 11 .0-15.6 WHITE BLOOD CELL 11.5 k/cumm 5.0-10.0 HEMOGLOBIN 16.5 gm/dL 14.0-18.0 HEMATOCRIT 45.8 % 40.0-54.0 PLATELET COUNT 231 k/cumm 150-400 HEMOGLOBIN A1C - 10/07/15 04:24 HEMOGLOBIN A1C 5.0 % < 5.7 METABOLIC PANEL, BASIC - 10/07/15 04:24 POTASSIUM 4.1 mmol/L 3.5-5.3 EST GFR (MDRD) > 60 mL/min > 59 ANION GAP 6 mmol/L 5-15 EST CrCl (CG) > 60 mL/min > 59 GLUCOSE 86 mg/dL 70-99 CALCIUM 8.5 mg/dL 8.5-10.1 BLOOD UREA NITROGEN 15 mg/dL 7-20 CREATININE 0.9 mg/dL 0.7-1.3 SODIUM 140 mmol/L 135-148 CHLORIDE 108 mmol/L 98-110 CARBON DIOXIDE 26 mmol/L 21-32 LIPID PANEL - 10/07/15 04:24 CHOLESTEROL/HDL RATIO 4.3 < 5.0 LDL CHOLESTEROL 117 mg/dL < 100 VLDL CHOLESTEROL 16 mg/dL < 30 TRIGLYCERIDES 78 mg/dL < 150 CHOLESTEROL 173 mg/dL < 200 HDL CHOLESTEROL 40 mg/dL > 39 MAGNESIUM - 10/07/15 04:24 MAGNESIUM 2.0 mg/dL 1.8-2.4 THYROID STIM HORMONE (TSH) - 10/07/15 04 :24 THYROID STIM HORMONE (TSH) 3.94 uIU/mL 0 .34-4.82 ALCIDES COMPREHENSIVE PROFILE - 10/07/15 15: 37 AB CHROMATIN <0.2 AI 0.0-0.9 AB PAPER MACHINE SUPERVISOR <0.2 AI 0.0-0.9 AB SM <0.2 AI 0.0-0.9 AB SSA < 0.2 AI 0.0-0.9 AB SSB < 0.2 AI 0.0-0.9 AB ANTI-CENTROMERE B <0.2 AI 0.0-0.9 AB DNA DOUBLE STRAND 1 IU/mL 0-9 AB SCL-70 <0.2 AI 0.0-0.9 AB MARCOS-1 <0.2 AI 0.0-0.9 ALCIDES COMMENT Note () CALCIUM IONIZED - 10/08/15 04:15 CALCIUM IONIZED 4.6 mg/dL 4.5-5.3 CBC W/DIFF - 10/08/15 04:15 BASOPHIL # 0.0 k/cumm 0.0-0.2 BASOPHIL % 1 % 0-1 EOSINOPHIL # 0.5 k/cumm 0.1-0.5 EOSINOPHIL % 6 % 2-4 GRANULOCYTE # 4.8 k/cumm 2.0-9.0 GRANULOCYTE % 56 % 50-75 LYMPHOCYTE # 2.3 k/cumm 1.0-4.0 LYMPHOCYTE % 27 % 20-30 MEAN CELL HGB 31.3 pg 27.0-33.0 MEAN CELL HGB CONCENTRATION 36.4 g/dL 32 .0-37.0 MEAN CELL VOLUME 86.1 fl 80.0-100.0 MONOCYTE # 0.9 k/cumm 0.1-1.0 MONOCYTE % 11 % 4-6 RED BLOOD CELL 5.24 m/cumm 4.00-6.00 RED CELL DISTRIBUTION WIDTH 13.7 % 11 .0-15.6 WHITE BLOOD CELL 8.6 k/cumm 5.0-10.0 HEMOGLOBIN 16.4 gm/dL 14.0-18.0 HEMATOCRIT 45.1 % 40.0-54.0 PLATELET COUNT 200 k/cumm 150-400 RENAL FUNCTION PANEL - 10/08/15 04:15 POTASSIUM 4.0 mmol/L 3.5-5.3 EST GFR (MDRD) > 60 mL/min > 59 ANION GAP 6 mmol/L 5-15 EST CrCl (CG) > 60 mL/min > 59 GLUCOSE 87 mg/dL 70-99 CALCIUM 8.6 mg/dL 8.5-10.1 BLOOD UREA NITROGEN 12 mg/dL 7-20 CREATININE 0.8 mg/dL 0.7-1.3 SODIUM 139 mmol/L 135-148 CHLORIDE 108 mmol/L 98-110 CARBON DIOXIDE 25 mmol/L 21-32 ALBUMIN 3.4 gm/dL 3.4-5.0 PHOSPHORUS 2.6 mg/dL 2.5-4.9 MAGNESIUM - 10/08/15 04:15 MAGNESIUM 2.0 mg/dL 1.8-2.4 THROMBOPHILIA PROFILE, STROKE - 10/08/15 04:15 DILUTE MAYA VIPER VENOM TIME NEGATIVE NEGATIVE SILICA CLOTTING TIME NEGATIVE NEGATIVE BETA-2 GLYCOPROTEIN I AB IGA < 9 0 -25 BETA-2 GLYCOPROTEIN I AB IGG < 9 0 -20 BETA-2 GLYCOPROTEIN I AB IGM < 9 0 -32 AB CARDIOLIPIN IGA <9 APL U/mL 0-11 AB CARDIOLIPIN IGG <9 GPL U/mL 0-14 AB CARDIOLIPIN IGM <9 MPL U/mL 0-12 FIBRINOGEN 253 mg/dL 200-400 FACTOR 8 ACTIVITY 168.3 % act 63-177 [place] FACTOR ANTIGEN 181 % 44-218 PLASMINOGEN ACTIVATOR INHIBIT 7.0 IU/mL 0-27 LIPOPROTEIN (a) 9 nmol/L <75 HOMOCYSTEINE, PLASMA 13.9 mcmol/L 3.7-13 .9 GLUCOSE (POC) - 10/09/15 05:44 GLUCOSE (POC) 101 mg/dL 70-99 CBC - 10/17/17 14:15 WHITE BLOOD CELL COUNT 9.1 Thousand/uL 3 .8-10.8 RED BLOOD CELL COUNT 5.93 Million/uL 4.2 0-5.80 HEMOGLOBIN 18.5 g/dL 13.2-17.1 HEMATOCRIT 52.9 % 38.5-50.0 MCV 89.2 fL 80.0-100.0 MCH 31.2 pg 27.0-33.0 MCHC 35.0 g/dL 32.0-36.0 RDW 12.6 % 11.0-15.0 PLATELET COUNT 196 Thousand/uL 140-400 MPV 10.4 fL 7.5-12.5 ABSOLUTE NEUTROPHILS 5979 cells/uL 1500- 7800 ABSOLUTE LYMPHOCYTES 2157 cells/uL 850-3 900 ABSOLUTE MONOCYTES 701 cells/uL 200-950 ABSOLUTE EOSINOPHILS 228 cells/uL 15-500 ABSOLUTE BASOPHILS 36 cells/uL 0-200 NEUTROPHILS 65.7 % NRG LYMPHOCYTES 23.7 % NRG MONOCYTES 7.7 % NRG EOSINOPHILS 2.5 % NRG BASOPHILS 0.4 % NRG Automated blood complete blood count (he mogram) panel - 01/22/18 07:20 Blood leukocytes automated count (number/volume) 10.5 10*3/uL 4.3-11.0 Blood erythrocytes automated count (number/volume) 5.64 10*6/uL 4.35-5.85 Venous blood hemoglobin measurement (mass/volume) 17.8 g/dL 13.3-17.7 Blood hematocrit (volume fraction) 49 % 40-54 Automated erythrocyte mean corpuscular volume 87 [ foz_us] 80-99 Automated erythrocyte mean corpuscular h emoglobin (mass per erythrocyte) 32 pg 25-34 Automated erythrocyte mean corpuscular h emoglobin concentration measurement (mass/volume) 36 g/dL 32-36 Automated erythrocyte distribution width ratio 14. 1 % 10.0- 14.5 Automated blood platelet count (count/volume) 213 10*3/uL 130-400 Automated blood platelet mean volume measurement 9.8 [foz_us] 7.4-10.4 PT panel in platelet poor plasma by coag ulation assay - 01/22/18 07:20 Prothrombin time (PT) in platelet poor plasma by coagu lation assay 13.4 s 12.2-14.7 INR in platelet poor plasma or blood by coagulation as say 1.0 0.8-1.4 Activated partial thromboplastin time (a PTT) in platelet poor plasma bycoagulation assay - 01/22/18 07:20 Activated partial thromboplastin time (a PTT) in platelet poor plasma bycoagulation assay 27 s 24-35 Comprehensive metabolic panel - 01/22/18 07:20 Serum or plasma sodium measurement (moles/volume) 142 mmol/L 135-145 Serum or plasma potassium measurement (moles/volume) 4.3 mmol/L 3.6-5.0 Serum or plasma chloride measurement (moles/volume) 108 mmol/L 98-107 Carbon dioxide 24 mmol/L 21-32 Serum or plasma anion gap determination (moles/volume) 10 mmol/L 5-14 Serum or plasma urea nitrogen measurement (mass/volume ) 16 mg/dL 7-18 Serum or plasma creatinine measurement (mass/volume) 0.93 mg/dL 0.60-1.30 Serum or plasma urea nitrogen/creatinine mass ratio 17 NRG Serum or plasma creatinine measurement w ith calculation of estimated glomerular filtration rate > NRG Serum or plasma glucose measurement (mass/volume) 85 mg/dL 70-105 Serum or plasma calcium measurement (mass/volume) 9.1 mg/dL 8.5-10.1 Serum or plasma total bilirubin measurement (mass/volu me) 0.9 mg/dL 0.1-1.0 Serum or plasma alkaline phosphatase bari surement (enzymatic activity/volume) 80 U/L 40-136 Serum or plasma aspartate aminotransfera se measurement (enzymatic activity/volume) 22 U/L 5-34 Serum or plasma alanine aminotransferase measurement (enzymatic activity/volume) 31 U/L 0-55 Serum or plasma protein measurement (mass/volume) 7.1 g/dL 6.4-8.2 Serum or plasma albumin measurement (mass/volume) 4.3 g/dL 3.2-4.5 CALCIUM CORRECTED 8.9 mg/dL 8.5-10.1 Lipid 1996 panel - 01/22/18 07:20 Serum or plasma triglyceride measurement (mass/volume) 89 mg/dL <150 Serum or plasma cholesterol measurement (mass/volume) 176 mg/dL < 200 Serum or plasma cholesterol in HDL measurement (mass/v olume) 40 mg/dL 40-60 Cholesterol in LDL [mass/volume] in serum or plasma by direct assay 126 mg/dL 1-129 Serum or plasma cholesterol in VLDL measurement (mass/ volume) 18 mg/dL 5-40 Methicillin resistant Staphylococcus aur eus (MRSA) screening culture - 01/22/18 07:20 Methicillin resistant Staphylococcus aureus (MRSA) scr eening culture NEG NRG Radiology Report from [id number] on 012 06:08:00 Final ReportADMITTING DIAGNOSIS: CP/SOA r/o dissectionCTA CHEST W W/O CONTRAST - 01/06/2012 H[facility]P ON [facility] RESULT: INDICATION: Chest and back pain.TECHNIQUE: Multiple contiguous axial images were obtainedthrough the chest before and after the uneventful bolusadministration of intravenous contrast. Coronal and bilateraloblique reconstructed images were then performed.FINDINGS: There is satisfactory opacification of the pulmonaryvessels with no evidence of pulmonary embolism. The aorta isnormal. There are small mediastinal and AP lymph nodes. There isdependent atelectasis in the right lung base. There are nopulmonary nodules, masses or infiltrates. There are lowattenuating nodules in the left lobe of the liver whichindeterminate due to size however likely benign. The remainderof intra-abdominal structures is unremarkable.IMPRESSION: No acute abnormality of the chest. Specifically,there is no evidence of pulmonary embolism or aortic dissection.Probable small hepatic cyst.Dictated on workstation # [id number] BY: RICCO PAREKH II, M.D., RADIOLOGISTELECTRONICALLY SIGNED BY: RICCO PAREKH II, M.D., RADIOLOGISTD Jan 06 2012 6:38AT AIG: Jan 08 2012 6:06AS Jan 08 2012 6:06A Radiology Report from SHASHI on 22:43:00 DIAGNOSTIC ABI GING REPORT [facility] - [address] [place] [address] PHONE #: [phone] FAX #: [phone] Name: LEMUEL MEDEIROS Loc: [id number] Radiology No: : 1965 Age: 50 Sex: M Status: ADM IN Unit No: [id number] Phys: Dorina Medina Acct: [id number] Reason For Exam: cannot speak Exam Date: 10/06/2015 EXAMS: CPT CODE: [id number] CT HEAD W/O CONTRAST 77713 REASON FOR EXAM: Expressive aphasia. TIME OF EXAM: 10/06/2015 9:55 PM COMPARISON: None TECHNIQUE: Routine helical CT images of the head were obtained without intravenous contrast. FINDINGS: There is a small focus of hypodensity in the posterior right temporal lobe in Wernicke's region (image 15, series 2). There is no hemorrhagic conversion. There is effacement of the adjacent sulci without significant mass effect or midline shift. No additional areas of hypodensity are visualized in the supratentorial cerebrum or cerebellum. The ventricles are unremarkable an age-appropriate. No extra- axial fluid collections are present. No extra-axial masses visualized. The bony calvarium is intact. The visualized portions of the paranasal sinuses are clear. Mucosal retention cysts are noted in the right maxillary antrum. The remainder of the paranasal sinuses are clear. IMPRESSION: 1. Small focal region of diminished attenuation in the posterior right temporal lobe (Wernicke's region) highly concerning for acute ischemia. An MRI can be performed to further evaluate this finding. 2. No acute intracranial hemorrhage or mass. Findings were discussed with Dorina Sequeira 10/06/2015 10:07 PM approximately. I have personally reviewed these images and approved or corrected the resident physician's interpretation. at 4804 RESIDENT: BRITTANI NANCE MD Reported and signed by: RODGER FORTE MD PAGE 1 Signed Report (CONTINUED) DIAGNOSTIC IMAGING REPORT [place] [address] PHONE #: [phone] FAX #: [phone] Name: LEMUEL MEDEIROS Loc: [id number] 3 Radiology No: : 1965 Age: 50 Sex: M Status: ADM IN Unit No: [id number] Phys: Dorina Medina Acct: [id number] Reason For Exam: cannot speak Exam Date: 10/06/2015 --------- EXAMS: CPT CODE: [id number] CT HEAD W/O CONTRAST [id number] <Continued> CC: Technologist: BRENDEN CRUZ Transcribed Date/Time: 10/06/2015 (5750)[employer] Teacher: HUSSAIN Printed Date/Time: 10/06/2015 (2243) BATCH NO: N/A PAGE 2 Signed Report Radiology Report from SHASHI on 016 06:34:00 DIAGNOSTIC ABI GING REPORT [facility] - [address], [place] [address] PHONE #: [phone] FAX #: [phone] Name: LEMUEL MEDEIROS Loc: W.7204 1 Radiology No: : 1965 Age: 50 Sex: M Status: ADM IN Unit No: [id number] Phys: Dorina Medina Acct: [id number] Reason For Exam: stroke Exam Date: 10/06/2015 EXAMS: CPT CODE: [id number] CT ANGIO NECK 38110 REASON FOR EXAM: Evaluate for possible thrombus. Stroke. COMPARISON: CT head 10/06/2015. TECHNIQUE: Noncontrast enhanced images were obtained through the neck. Contrast enhanced thin section helical images were obtained from the mediastinum and to the sella with the bolus of contrast timed for the optimal opacification of the arterial structures of the neck per departmental CTA protocol; post-processing, retro reconstruction, sagittal, and coronal reformatted images of the angiographic views of the vessels were obtained and were reviewed. 3-D images were generated on an independent workstation and reviewed. FINDINGS: The noncontrast-enhanced images demonstrate no evidence of calcified atherosclerotic plaques. The visualized portions of the aortic arch demonstrates no evidence of aneurysm or dissection. No significant atherosclerosis is noted. The origin of the arch vessels is unremarkable. The brachiocephalic artery is normal in course and caliber. The right common carotid the origin is unremarkable. The right subclavian artery is normal in course and caliber. Both common carotid arteries are normal in course and caliber. Bilateral internal carotid arteries are unremarkable up to the level of the skull base. The vertebral arteries are visualized originating from the proximal subclavian arteries bilaterally and are codominant in appearance. There is no focal stenosis, dissection, or aneurysm involving the posterior circulation. The basilar artery is normal in appearance. There is no basilar tip aneurysm. The right internal jugular vein is slightly prominent. No evidence of thrombus in the major venous circulation. The osseous structures of the cervical spine demonstrate no acute abnormality. Included views through the lung apices demonstrate no focal lesion. IMPRESSION: PAGE 1 Signed Report (CONTINUED) DIAGNOSTIC IMAGING REPORT [facility] - [address] [address] PHONE #: [phone] FAX #: [phone] Name: LEMUEL MEDEIROS Loc: W.7204 1 Radiology No: : 1965 Age: 50 Sex: M Status: ADM IN Unit No: [id number] Phys: Dorina Medina Acct: [id number] Reason For Exam: alice for Exam: stroke Exam Date: 10/06/2015--------- EXAMS: CPT CODE: [id number] CT ANGIO NECK 94307 <Continued> 1. Normal appearance of the carotid circulation without thrombus or dissection. 2. Normal vertebrobasilar system. No focal abnormality 3. No AVM no aneurysm. 4. No significant atherosclerosis in the anterior or posterior circulation. I have personally reviewed these images and confirmed or corrected the resident physician's interpretation. at 0628 RESIDENT: BRITTANI NANCE MD Reported and signed by: ZACARIAS DA SILVA MD CC: Rosario Traore MD Technologist: NO SR Transcribed Date/Time: 10/07/2015 (627)[employer] Teacher: [email or web address] Printed Date/Time: 10/07/2015 (56) BATCH NO: N/A PAGE 2 Signed Report Radiology Report from SHASHI on 016 09:10:00 DIAGNOSTIC ABI GING REPORT [facility] - [address] [place] [address] PHONE #: [phone] FAX #: [phone] Name: LEMUEL MEDEIROS RAYMOND Loc: W.7204 1 Radiology No: : 1965 Age: 50 Sex: M Status: ADM IN Unit No: [id number] Phys: Dorina Medina Acct: [id number] Reason For Exam: stroke Exam Date: 10/06/2015 EXAMS: CPT CODE: [id number] CT ANGIO HEAD 21755 DATE: 10/06/2015 11:45 PM REASON FOR EXAM: Stroke COMPARISON: CT head 10/06/2015 9:54 PM. TECHNIQUE: Noncontrast enhanced images were obtained through the region of the [place]. Contrast enhanced thin section helical images were obtained through the brain with the bolus of contrast timed for the optimal opacification of the arterial structures of the [place] per departmental CTA protocol; post-processing, 3-D retro reconstruction and coronal reformatted images of the angiographic views of the vessels were obtained and were reviewed. FINDINGS: CTA brain: Both internal carotid arteries are normal in course and caliber. The internal carotid artery terminus are unremarkable bilaterally. There is normal opacification of both the anterior and middle cerebral arteries. There is no evidence of significant stenosis or aneurysm. The MCA trifurcation and the distal branch vessels are unremarkable bilaterally. There is no evidence of significant stenosis or aneurysm. The anterior communicating artery is well visualized and is unremarkable. In the posterior circulation both the vertebral arteries demonstrate a normal opacification.the vertebral arteries are codominant. Both the right and left PICA arteries are identified. The basilar artery is normal in course and caliber. The terminal branch vessels including the superior cerebellar arteries unremarkable. The posterior cerebral arteries are unremarkable in appearance demonstrating normal and symmetric flow-related enhancement. The posterior communicating arteries are not definitely visualized bilaterally. CT brain: The ventricles and cortical sulci are age-appropriate. There is no midline shift or mass-effect. No acute intra-axial hemorrhage is seen. Small hypodense focus is again noted in the posterior right temporal lobe (image 17, series 5). There is no significant increased enhancement in this region on the postcontrast sequence. No extra-axial masses or collections are present. The postcontrast images demonstrate no abnormal intra-axial enhancing focal masses. The bony calvarium is intact. The visualized paranasal sinuses are clear. PAGE 1 Signed Report (CONTINUED) DIAGNOSTIC IMAGING REPORT [facility] - [address] [address] PHONE #: [phone] FAX #: [phone] Name: LEMUEL MEDIEROS Loc: [id number] 1 Radiology No: : 1965 Age: 50 Sex: M Status: ADM IN Unit No: [id number] Phys: Dorina Medina Acct: [id number] Reason For Exam: alice for Exam: stroke Exam Date: 10/06/2015 --------- EXAMS: CPT CODE: [id number] CT ANGIO HEAD 83220 <Continued> IMPRESSION: 1. No acute thrombus or dissection involving the [place]. 2. No AVM or aneurysm of the anterior posterior circulation. 3. Small hypodense focus is again visualized in the posterior right temporal lobe which likely represents acute infarct. Findings were discussed with Renee 10/07/2015 11:45 AM approximately. I have personally reviewed these images and confirmed or corrected the resident physician's interpretation. at 0904 RESIDENT: BRITTANI NANCE MD Reported and signed by: ZACARIAS DA SILVA MD CC: Rosario Traore MD Technologist: NO SR Transcribed Date/Time: 10/07/2015 (0904)[employer] Agriculture Teacher: [email or web address] Printed Date/Time: 10/07/2015 (0910) BATCH NO: N/A PAGE 2 Signed Report Radiology Report from KATELIN on 10/07/19 16 11:47:00 DIAGNOSTIC ABI GING REPORT [facility] - [address] [address] PHONE #: [phone] FAX #: [phone] Name: LEMUEL MEDEIROS Loc: [id number] 1 Radiology No: : 1965 Age: 50 Sex: M Status: ADM IN Unit No: [id number] Phys: Ondina Charles APRN Acct: [id number] Reason For Exam: s/p tpa, stroke syndrome Exam Date: 10/07/2015 EXAMS: CPT CODE: [id number] MRI BRAIN W/O CONTR [id number] Exam: MRI brain without contrast Reason for exam: Status post TPA, stroke. Comparison: None Date of exam: Zero on October 2015 at 1010 hrs. Technique: Multiplanar, multisequence MRI the brain was obtained without contrast Findings: Focal areas of faint diffusion restriction are seen involving the left insular, inferior and middle frontal gyrus consistent with acute ischemia. No evidence of hemorrhagic conversion appreciated. Focal areas of abnormal hyperintense T2 FLAIR signal seen involving the right superior parietal lobule and inferior temporal gyrus likely the result of prior ischemia. No diffusion restriction is seen in these areas. The scattered nonspecific white matter hyperintensities are seen which could be age-related or microvascular in nature. No other focal parenchyma normality appreciated. The basilar cisterns, ventricles and sulci are unremarkable. No midline shift, mass effect, intra-or extra-axial hemorrhage appreciated. The major intracranial vasculature demonstrates a normal flow-related pattern. Moderate mucosal thickening and prominent mucous retention cysts are seen in the right maxillary antrum. There may paranasal sinuses and mastoid air cells have a normal signal. The globes, orbits, regional soft tissues and calvarium are grossly unremarkable. Impression: 1. Probable focal of ischemia involving the left insular and inferior and middle frontal gyrus. No evidence of hemorrhagic conversion. 2. Probable remote area of ischemia involving the right superior parietal lobule and right superior temporal gyrus. PAGE 1 Signed Report (CONTINUED) DIAGNOSTIC IMAGING REPORT [facility] - [address] [place] [address] PHONE #: [phone] FAX #: [phone] -------- Name: LEMUEL MEDEIROS Loc: [id number] 1 Radiology No: : 1965 Age: 50 Sex: M Status: ADM IN Unit No: [id number] Phys: Ondina Charles APRN Acct: [id number] Reason For Exam: s/p tpa, stroke syndrome Exam Date: 10/07/2015 EXAMS: CPT CODE: [id number] MRI BRAIN W/O CONTR [id number] <Continued> at 1142 Reported and signed by: TAHIR TANG MD CC: Rosario Traore MD Technologist: DYLON CELIS Transcribed Date/Time: 10/07/2015 (1142)[employer] School Agriculture Teacher: MAYTE Printed Date/Time: 10/07/2015 (2889) BATCH NO: N/A PAGE 2 Signed Report Encounters ACCT No. Visit Date/Time Discharge Status Pt. Type Provider Facility Loc./Unit Complaint [id number] 02/18/2019 16:00:00 02/18/2019 23:59: 59 CLS Outpatient JEANNIE RICHARDSON LAC [facility] [id number] 10/17/2017 13:00:00 Document Registration [id number] 10/06/2015 22:29:00 016 14:44:00 DIS Inpatient Eugenie VINSON, Rosario Soto [facility] W.10TN [id number] 02/01/2018 14:43:00 16:18:00 DIS Outpatient DIANELYS NARVAEZ APRN [facility] ER WOUND INFECTION [id number] 01/22/2018 06:52:00 13:48:00 DIS Outpatient HECTOR VINSON FACC, MIGUEL ECHEVARRIA CC DS [facility] CATH CHEST DISCOMFORT,DYSPNEA ON EXERTION,PALPITATIONS [id number] 01/21/2018 08:42:00 23:59:59 CLS Outpatient ALESHA SHORT [facility] CARD CHEST DISCOMFOR T,HEART PALPITATIONS [id number] 2012 21:14:00 01/06/20 12 03:56:00 DIS Emergency Pierre Sterling DO [facility] on [address]
[2019-07-25 02:19] LABS: BASOPHILS % (AUTO) 0 % (0-10); EOSINOPHILS # (AUTO) 0.5 10^3/uL (0.0-0.3); EOSINOPHILS % (AUTO) 5 % (0-10); HEMATOCRIT 46 % (40-54); HEMOGLOBIN 16.5 G/DL (13.3-17.7); LYMPHOCYTES # (AUTO) 3.5 X 10^3 (1.0-4.0); LYMPHOCYTES % (AUTO) 37 % (12-44); MEAN CORPUSCULAR HEMOGLOBIN 32 PG (25-34); MEAN CORPUSCULAR HGB CONC 36 G/DL (32-36); MEAN CORPUSCULAR VOLUME 88 FL (80-99); MONOCYTES # (AUTO) 1.1 X 10^3 (0.0-1.0); MONOCYTES % (AUTO) 12 % (0-12); NEUTROPHILS # (AUTO) 4.4 X 10^3 (1.8-7.8); NEUTROPHILS % (AUTO) 47 % (42-75); PLATELET COUNT 237 10^3/uL (130-400); RED CELL DISTRIBUTION WIDTH 13.7 % (10.0-14.5); WHITE BLOOD COUNT 9.5 10^3/uL (4.3-11.0)
[2019-07-25 02:26] LABS: ALBUMIN 4.3 GM/DL (3.2-4.5); CHLORIDE 106 MMOL/L (98-107); POTASSIUM 3.6 MMOL/L (3.6-5.0); SODIUM 140 MMOL/L (135-145)
[2019-07-25 02:28] LABS: GLUCOSE 95 MG/DL (70-105)
[2019-07-25 02:29] LABS: CARBON DIOXIDE 23 MMOL/L (21-32)
[2019-07-25 02:30] LABS: BILIRUBIN,TOTAL 0.8 MG/DL (0.1-1.0)
[2019-07-25] MEDS ORDERED: NS IV 1000 ML 1,000 ML IV ONE (02:30)
--- NOTE | 2019-07-25 02:30 | ED Neurological Problem ---
General Chief Complaint: Neuro-Stroke Like Symptoms Stated Complaint: POSS STROKE Nursing Triage Note: BROUGHT IN BY [facility] C/O ASPHASIA/DYSARTHRIA. REPORT FROM EMS PT WOKE UP APPROX. 0140 WITH DIFFICULTY SPEAKING ET. DIFFICULTY WALKING. PT REPORTS NO PROBLEMS WHEN PT WENT TO BED AT 2200. Nursing Sepsis Screen: No Definite Risk Source: patient Exam Limitations: no limitations History of Present Illness Date Seen by Provider: Jul 25, 2019 Time Seen by Provider: 02:04 Initial Comments Here by EMS with report of strokelike symptoms. Went to bed at about 10 PM and that was the last known well time. Woke up at 0140 and was fairly able to walk and noted that he was having difficulty with talking. Has history of previous stroke. Does not follow with any local physician. Symptoms are apparently impr oving both per the patient and per EMS. Still having some difficulty with speech but denies weakness in any extremity. Denies chest pain, nausea, vomiting, diarrhea or breathing problems. Denies fever or chills. Timing/Duration: decreasing, other (last known well time 4 hours ago) Severity: mild Associated Symptoms: No confusion, No fever/chills, No nausea/vomiting, No paresthesia; slurred speech, trouble walking Allergies and Home Medications Allergies Coded Allergies: No Known Drug Allergies (Unverified , 01/22/18) Home Medications Acetaminophen 500 Mg Tablet, 500 MG PO PRN PRN for PAIN-MILD, (Reported) Aspirin 81 Mg Tablet.dr, 81 MG PO DAILY, (Reported) Pravastatin Sodium 20 Mg Tablet, 20 MG PO DAILY, (Reported) Topiramate 25 Mg Tablet, 25 MG PO BID, (Reported) Patient Home Medication List Home Medication List Reviewed: Yes Review of Systems Review of Systems Constitutional: see HPI; No chills, No fever Eyes: Denies Pain, Denies Vision Changes Ears, Nose, Mouth, Throat: no symptoms reported Respiratory: No cough, No short of breath Cardiovascular: No chest pain, No edema Gastrointestinal: No abdominal pain, No nausea, No vomiting Genitourinary: no symptoms reported Musculoskeletal: No back pain, No muscle pain; muscle weakness Skin: no symptoms reported Psychiatric/Neurological: See HPI, Cognitive Dysfunction; Denies Unable to Move Lower Ext, Denies Unable to Move Upper Ext All Other Systems Reviewed Negative Unless Noted: Yes Past Rmnphap-Nudywv-Plaxqv Hx Past Med/Social Hx: Reviewed Nursing Past Med/Soc Hx Patient Social History Alcohol Use: Denies Use Recreational Drug Use: No Smoking Status: Current Everyday Smoker Type Used: Cigarettes 2nd Hand Smoke Exposure: Yes Recent Foreign Travel: No Contact w/Someone Who Travel: No Recent Infectious Disease Expo: No Recent Hopitalizations: No Physical Abuse: No Sexual Abuse: No Mistreated: No Fear: No Immunizations Up To Date Tetanus Booster (TDap): Unknown Seasonal Allergies Seasonal Allergies: No Past Medical History Surgeries: Yes Coronary Stent Respiratory: No Cardiac: Yes Coronary Artery Disease, Heart Attack Neurological: Yes Stroke Genitourinary: No Gastrointestinal: No Musculoskeletal: No Endocrine: No HEENT: No Cancer: No Psychosocial: No Integumentary: No Blood Disorders: No Family Medical History Reviewed Nursing Family Hx Physical Exam Vital Signs Vital Signs - First Documented 07/25/19 02:04 Temp 36.8 Pulse 73 Resp 18 B/P (MAP) 129/101 (110) Pulse Ox 96 O2 Delivery Room Air Capillary Refill : Less Than 3 Seconds Height, Weight, BMI Height: 5'9.00" Weight: 175lbs. 0.0oz. 79.594229lo; 25.00 BMI Method:Stated General Appearance: WD/WN, no apparent distress HEENT: PERRL/EOMI, pharynx normal Neck: full range of motion, supple Respiratory: lungs clear, normal breath sounds Cardiovascular: regular rate, rhythm, no murmur Peripheral Pulses: 2+ Dorsalis Pedis (R), 2+ Left Dors-Pedis (L), 2+ Radial Pulses (R), 2+ Radial Pulses (L) Gastrointestinal: non tender, soft Extremities: normal range of motion, non-tender, normal inspection Neurologic/Psychiatric: alert, normal mood/affect Crainal Nerves: normal hearing, PERRL, abnormal speech Motor/Sensory: no motor deficit, no sensory deficit, no pronator drift; No weak motor strength RUE Skin: normal color, warm/dry Stroke NIH Stroke Scale Assessment Level of Consciousness: 0=Alert (0), Level of Consciousness-Questions: 0=Ans wers both month/age (0), LOC Commands: 0=Performs both tasks (0), Visual Lam: 0=No visual loss (0), Facial Movement (Facial Paresis): 0=Normal symmetrical mnt (0), Motor Function-Arms Right: 0=No drift (0), Motor Function-Arms Left: 0=No drift (0), Motor Function-Legs Right: 0=No drift (0), Motor Function-Legs Left: 0=No drift (0), Limb Ataxia: 0=Absent (0), Sensory: 0=Normal:no loss (0), Best Language: 1=Mild to moderat aphasia (1), Dysarthria: 1=Mild to moderate loss (1), Extinction & Inattention: 0=No abn ormality (0), Total: Progress/Results/Core Measures Results/Orders Lab Results Laboratory Tests Test 07/25/19 02:09 07/25/19 02:11 Range/Units Glucometer 103 70-110 MG/DL White Blood Count 9.5 4.3-11.0 10^3/uL Red Blood Count 5.21 4.35-5.85 10^6/uL Hemoglobin 16.5 13.3-17.7 G/DL Hematocrit 46 40-54 % Mean Corpuscular Volume 88 80-99 FL Mean Corpuscular Hemoglobin 32 25-34 PG Mean Corpuscular Hemoglobin Concent 36 32-36 G/DL Red Cell Distribution Width 13.7 10.0-14.5 % Platelet Count 237 130-400 10^3/uL Mean Platelet Volume 11.0 H 7.4-10.4 FL Neutrophils (%) (Auto) 47 42-75 % Lymphocytes (%) (Auto) 37 12-44 % Monocytes (%) (Auto) 12 0-12 % Eosinophils (%) (Auto) 5 0-10 % Basophils (%) (Auto) 0 0-10 % Neutrophils # (Auto) 4.4 1.8-7.8 X 10^3 Lymphocytes # (Auto) 3.5 1.0-4.0 X 10^3 Monocytes # (Auto) 1.1 H 0.0-1.0 X 10^3 Eosinophils # (Auto) 0.5 H 0.0-0.3 10^3/uL Basophils # (Auto) 0.0 0.0-0.1 10^3/uL Prothrombin Time 13.7 12.2-14.7 SEC INR Comment 1.0 0.8-1.4 Activated Partial Thromboplast Time 29 24-35 SEC D-Dimer 0.30 0.00-0.49 UG/ML Sodium Level 140 135-145 MMOL/L Potassium Level 3.6 3.6-5.0 MMOL/L Chloride Level 106 98-107 MMOL/L Carbon Dioxide Level 23 21-32 MMOL/L Anion Gap 11 5-14 MMOL/L Blood Urea Nitrogen 15 7-18 MG/DL Creatinine 1.01 0.60-1.30 MG/DL Estimat Glomerular Filtration Rate > 60 BUN/Creatinine Ratio 15 Glucose Level 95 70-105 MG/DL Calcium Level 9.0 8.5-10.1 MG/DL Corrected Calcium 8.8 8.5-10.1 MG/DL Total Bilirubin 0.8 0.1-1.0 MG/DL Aspartate Amino Transf (AST/SGOT) 19 5-34 U/L Alanine Aminotransferase (ALT/SGPT) 19 0-55 U/L Alkaline Phosphatase 79 40-136 U/L Troponin I < 0.028 <0.028 NG/ML Total Protein 7.0 6.4-8.2 GM/DL Albumin 4.3 3.2-4.5 GM/DL My Orders Orders - LIZA PACHECO MD Cbc With Automated Diff (07/25/19 02:10) Protime With Inr (07/25/19 02:10) Partial Thromboplastin Time (07/25/19 02:10) Comprehensive Metabolic Panel (07/25/19 02:10) Fibrin Degradation Products (07/25/19 02:10) Troponin I (07/25/19 02:10) Ua Culture If Indicated (07/25/19 02:10) Chest 1 View, Ap/Pa Only (07/25/19 02:10) Ekg Tracing (07/25/19 02:10) Nothing By Mouth (07/25/19 Breakfast) Accucheck Stat ONCE (07/25/19 02:10) Ed Iv/Invasive Line Start (07/25/19 02:10) Ed Iv/Invasive Line Start (07/25/19 02:10) Vital Signs Stroke Patient Q15M (07/25/19 02:10) Ct Head Wo-R/O Stroke (07/25/19 02:10) O2 (07/25/19 02:10) Intake & Output 06,14,22 (07/25/19 02:10) Monitor-Rhythm Ecg Trace Only (07/25/19 02:10) Dysphagia Screening Tool (07/25/19 02:10) Lipid Panel (07/26/19 06:00) Ct Angio Head/Neck (07/25/19 02:10) Ns Iv 1000 Ml (Sodium Chloride 0.9%) (07/25/19 02:30) Ns Iv 1000 Ml (Sodium Chloride 0.9%) (07/25/19 02:31) Iohexol Injection (Omnipaque 350 Mg/Ml 1 (07/25/19 02:45) Received Contrast (Hold Metformin- Contr (07/25/19 02:45) Ns (Ivpb) (Sodium Chloride 0.9% Ivpb Bag (07/25/19 02:45) Alteplase (Activase) (Activase Injection (07/25/19 03:31) Vital Signs Stroke Patient Q15M (07/25/19 03:23) Dysphagia Screening Tool (07/25/19 03:23) Alteplase (Activase) (Activase Injection (07/25/19 03:23) Post Thrombolytic Adminstratio (07/25/19 03:23) Post Thrombolytic Adminstratio (07/25/19 03:23) Ct Head Wo (07/26/19 03:23) Medications Given in ED Current Medications Medications Dose Ordered Sig/Oanh Route Start Time Stop Time Status Last Admin Dose Admin Iohexol 100 ml ONCE ONCE IV 07/25/19 02:45 07/25/19 02:46 UNV 07/25/19 02:40 75 ML Sodium Chloride 100 ml ONCE ONCE IV 07/25/19 02:45 07/25/19 02:46 UNV 07/25/19 02:40 80 ML Sodium Chloride 1,000 ml @ 0 mls/hr Q0M ONCE IV 07/25/19 02:30 07/25/19 02:32 DC 07/25/19 02:40 0 MLS/HR Vital Signs/I&O 07/25/19 07/25/19 02:04 02:04 Temp 36.8 Pulse 73 Resp 18 B/P (MAP) 129/101 (110) Pulse Ox 96 96 O2 Delivery Room Air Room Air Blood Pressure Mean: 110 FSBG Bedside Testing Finger Stick Blood Glucose: 103 Blood Glucose Action Taken: ERP NOTIFIED Progress Progress Note : Progress Note Seen and evaluated on arrival by EMS. Rapid evaluation including stroke scale done by me. Patient to on stroke scale due to difficulty with speech and forming words. CT head as well as CT angiogram head and neck ordered as well as stroke protocol. 0234: Symptoms were better earlier but now are worsening with respect to speech and communication. Normal saline 1 L bolus. Monitor patient. 0247: CT results noted. I did initiate contact with [facility] and talked with Dr. Summers. We reviewed the case. TPA not indicated at this point. Consider CT perfusion study although may be limited. 0315: I have reviewed the case again with stroke neurologists. Radiology believes that the CT perfusion study will be viable due to contrast from CT angiogram. She agrees that has limited value. At this point there is no other options auscultation and we will admit him here for supportive care. 0322: I have rediscussed this with the patient. He now tells me that he was confused earlier and he actually went to bed 12:30 AM (less than 3 hours ago) and he is very sure about that time frame. At that time he had no symptoms and it was at 141 he woke up that he did have symptoms. This would put him in the 3 hour window. I rediscussed the case with neurology and they are recommending at this point given those findings that TPA would be indicated especially as he has had significant worsening of his symptoms. They are waxing and waning. 0340: TPA will be given. % And on the chart. I did discuss at length with the patient regarding concerns for bleeding given that there are different timeframes of when his last known well time are. Patient verbalize understanding and states that yes in fact that he did go to bed at 12:30. We will initiate TPA. Second IV initiated. Patient has declined South catheter. Current symptoms are difficulty with speech but he has better arm movement now. He states his last stroke was similar in that he had difficulty with speech and that he did get TPA at that time. He does not want to live like this and would like the TPA. I did discuss with him regarding COVID exposure. 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 Nobody he knows is sick. He denies fever, chills, upper respiratory symptoms, breathing problems or other concerns. Patient to be admitted to ICU under the care of hospitalist team. I will discuss with the virtual ICU team. Admit, inpatient status. Patient agrees with plan. Initial ECG Impression Date: Jul 25, 2019 Initial ECG Impression Time: 02:20 Initial ECG Rate: 61 Initial ECG Rhythm: Normal Sinus Initial ECG Comparisson: No Previous ECG Available Comment Sinus rhythm with inferior Q waves. Flat T waves throughout. No evidence of ST elevation [place]. Interpreted by me. Diagnostic Imaging Diagonstic Imaging: Xray Plain Films/CT/US/NM/MRI: chest Comments No acute findings Diagonstic Imaging: CT Plain Films/CT/US/NM/MRI: head, other Comments CT head and CT angiogram head and neck performed. No acute findings on either study per statrad report and in discussion with the radiologist. Reviewed: Reviewed Night Hawk Study, Reviewed by Me, Discussed w/Radiologist Departure Impression Primary Impression: Acute CVA (cerebrovascular accident) Disposition: ADMITTED INPATIENT Condition: Stable Admissions Decision to Admit Reason: Admit from ER (General) Decision to Admit/Date: Jul 25, 2019 Time/Decision to Admit Time: 03:13 Departure-Patient Inst. Referrals: NO,LOCAL PHYSICIAN (PCP/Family) Primary Care Physician LIZA PACHECO MD Jul 25, 2019 02:30
[2019-07-25 02:31] LABS: ALKALINE PHOSPHATASE 79 U/L (40-136); FIBRIN DEGRADATION PRODUCTS 0.3 UG/ML (0.00-0.49); PROTHROMBIN TIME PATIENT 13.7 SEC (12.2-14.7)
[2019-07-25] MEDS ORDERED: NS IV 1000 ML 1,000 ML ONE (02:31)
[2019-07-25 02:32] LABS: CREATININE SERUM 1.01 MG/DL (0.60-1.30); GFR ESTIMATED > 60
[2019-07-25 02:33] LABS: BUN/CREATININE RATIO 15
[2019-07-25 02:35] LABS: ALANINE AMINOTRANSFERASE 19 U/L (0-55)
--- NOTE | 2019-07-25 02:38 | NUR ---
PT BACK FROM CT
[2019-07-25] MEDS ORDERED: NS 100 ML (IVPB) BAG IV ONE (02:45)
[2019-07-25] MEDS ORDERED: HOLD METFORMIN - RECEIVED CONTRAST 20 ML VIAL IV SCH (02:45)
[2019-07-25] MEDS ORDERED: IOHEXOL 350 MG/ML 100 ML (OMNIPAQUE 350) VIAL IV ONE (02:45)
--- NOTE | 2019-07-25 03:20 | NUR ---
PT REPORTS NOW HE WENT TO BED AT 0030. ERP SPEAKING WITH NEURO.
[2019-07-25] MEDS ORDERED: ALTEPLASE 100 MG/VIAL (ACTIVASE) IV ONE (03:23)
--- NOTE | 2019-07-25 03:27 | NUR ---
CONSENT SIGNED FOR TPA ADMINISTRATION. PT VERBALIZED UNDERSTANDING OF RISKS/BENEFITS.
[2019-07-25] MEDS ORDERED: ALTEPLASE 100 MG/VIAL (ACTIVASE) ONE (03:31)
[2019-07-25 03:49] LABS: BILIRUBIN,URINE NEGATIVE (NEGATIVE); CLARITY,URINE CLEAR; COLOR,URINE YELLOW; GLUCOSE, URINE (UA) NEGATIVE (NEGATIVE); KETONES,URINE NEGATIVE (NEGATIVE); LEUKOCYTE ESTERASE ,URINE NEGATIVE (NEGATIVE); NITRITE,URINE NEGATIVE (NEGATIVE); PROTEIN,URINE NEGATIVE (NEGATIVE)
--- NOTE | 2019-07-25 04:01 | NUR ---
SPOKE WITH PT'S SISTER NIKOLE ON PHONE [phone] UPDATED ON PT'S CONDITION WITH PT'S CONSENT.
[2019-07-25 04:09] LABS: BACTERIA,URINE NEGATIVE /HPF; SQUAMOUS EPITHELIAL CELL,UR RARE /HPF; WBC,URINE RARE /HPF
--- OUTSIDE RECORDS SUMMARY | 2019-07-25 04:10 | XMS REPORT | Continuity of Care Document ---
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 9 CEREBRAL INFARCTION, UNSPECIFIED 10/06/2015 Eugenie VINSON Rosario P F R00. 1 BRADYCARDIA, UNSPECIFIED 10/06/2015 Eugenie VINSON Roasrio P F R47. 01 APHASIA 01/22/2018 HECTOR VINSON FACC, MIGUEL FACP CCDS Ot E78.49 OTHER HYPERLIPIDEMIA 01/22/2018 HECTOR VINSON FACC, ALI FACP CCDS Ot F17.210 NICOTINE DEPENDENCE, CIGARETTES, UNCOMPL 01/22/2018 HECTOR VINSON FACC, ALI FACP CCDS Ot I25.10 ATHSCL HEART DISEASE OF [place] CORONARY 01/22/2018 HECTOR VINSON FACC, ALI FACP CCDS Ot I25.2 OLD MYOCARDIAL INFARCTION 01/22/2018 HECTOR VINSON FACC, ALI FACP CCDS Ot R00.2 PALPITATIONS 01/22/2018 HECTOR VINSON FACC, ALI FACP CCDS Ot R06.09 OTHER FORMS OF DYSPNEA 01/22/2018 HECTOR VINSON FACC, ALI FACP CCDS Ot Z79.82 MAT CUTTER (CURRENT) USE OF ASPIRIN 01/22/2018 HECTOR VINSON FACC, ALI FACP CCDS Ot Z79.899 OTHER JAIL (CURRENT) DRUG THERAPY 01/22/2018 HECTOR VINSON FACC, ALI FACP CCDS Ot Z86.73 PRSNL HX OF TIA (TIA), AND CEREB INFRC W 01/23/2018 BAIMA, ALESHA L STRUCTURAL ANALYSIS ENGINEER Ot E78.49 OTHER HYPERLIPIDEMIA 01/23/2018 BAIMA, ALESHA L STRUCTURAL ANALYSIS ENGINEER Ot I25.10 ATHSCL HEART DISEASE OF [place] CORONARY 01/23/2018 BAIMA, ALESHA L STRUCTURAL ANALYSIS ENGINEER Ot R00.2 PALPITATIONS 01/23/2018 BAIMA, ALESHA L STRUCTURAL ANALYSIS ENGINEER Ot R06.09 OTHER FORMS OF DYSPNEA 01/23/2018 BAIMA, ALESHA L STRUCTURAL ANALYSIS ENGINEER Ot R07.89 OTHER CHEST PAIN 01/23/2018 BAIMA, ALESHA L STRUCTURAL ANALYSIS ENGINEER Ot Z86.73 PRSNL HX OF TIA (TIA), AND CEREB INFRC W 01/23/2018 BAIMA, ALESHA L STRUCTURAL ANALYSIS ENGINEER Ot E78.49 OTHER HYPERLIPIDEMIA 01/23/2018 BAIMA, ALESHA L STRUCTURAL ANALYSIS ENGINEER Ot I25.10 ATHSCL HEART DISEASE OF [place] CORONARY 01/23/2018 BAIMA, ALESHA L STRUCTURAL ANALYSIS ENGINEER Ot R00.2 PALPITATIONS 01/23/2018 BAIMA, ALESHA L STRUCTURAL ANALYSIS ENGINEER Ot R06.09 OTHER FORMS OF DYSPNEA 01/23/2018 BAIMA, ALESHA L STRUCTURAL ANALYSIS ENGINEER Ot R07.89 OTHER CHEST PAIN 01/23/2018 BAIMA, ALESHA L STRUCTURAL ANALYSIS ENGINEER Ot Z86.73 PRSNL HX OF TIA (TIA), AND CEREB INFRC W 02/01/2018 BAIMA, ALESHA L STRUCTURAL ANALYSIS ENGINEER Ot E78.49 OTHER HYPERLIPIDEMIA 02/01/2018 BAIMA, ALESHA L STRUCTURAL ANALYSIS ENGINEER Ot I25.10 ATHSCL HEART DISEASE OF [place] CORONARY 02/01/2018 BAIMA, ALESHA L STRUCTURAL ANALYSIS ENGINEER Ot R00.2 PALPITATIONS 02/01/2018 BAIMA, ALESHA L STRUCTURAL ANALYSIS ENGINEER Ot R06.09 OTHER FORMS OF DYSPNEA 02/01/2018 BAIMA, ALESHA L STRUCTURAL ANALYSIS ENGINEER Ot R07.89 OTHER CHEST PAIN 02/01/2018 ALESHA SHORT STRUCTURAL ANALYSIS ENGINEER Ot Z86.73 PRSNL HX OF TIA (TIA), AND CEREB INFRC W 02/01/2018 ALESHA SHORT STRUCTURAL ANALYSIS ENGINEER Ot E78.49 OTHER HYPERLIPIDEMIA 02/01/2018 ALESHA SHORT STRUCTURAL ANALYSIS ENGINEER Ot I25.10 ATHSCL HEART DISEASE OF [place] CORONARY 02/01/2018 ALESHA SHORT STRUCTURAL ANALYSIS ENGINEER Ot R00.2 PALPITATIONS 02/01/2018 ALESHA SHORT STRUCTURAL ANALYSIS ENGINEER Ot R06.09 OTHER FORMS OF DYSPNEA 02/01/2018 ALESHA SHORT STRUCTURAL ANALYSIS ENGINEER Ot R07.89 OTHER CHEST PAIN 02/01/2018 ALESHA SHORT STRUCTURAL ANALYSIS ENGINEER Ot Z86.73 PRSNL HX OF TIA (TIA), AND CEREB INFRC W 02/01/2018 DIANELYS NARVAEZ APRN Ot I25.10 ATHSCL HEART DISEASE OF [place] CORONARY 02/01/2018 DIANELYS NARVAEZ APRN Ot I25 .2 OLD MYOCARDIAL INFARCTION 02/01/2018 DIANELYS NARVAEZ APRN Ot M79.81 NONTRAUMATIC HEMATOMA OF SOFT TISSUE 02/01/2018 DIANELYS NARVAEZ APRN Ot R10.31 RIGHT LOWER QUADRANT PAIN 02/01/2018 DIANELYS NARVAEZ APRN Ot Z79.82 JAIL (CURRENT) USE OF ASPIRIN 02/01/2018 DIANELYS NARVAEZ APRN Ot Z86.73 PRSNL HX OF TIA (TIA), AND CEREB INFRC W 02/01/2018 DIANELYS NARVAEZ APRN Ot Z95 .5 PRESENCE OF CORONARY ANGIOPLASTY IMPLANT 02/07/2018 DIANELYS NARVAEZ APRN Ot I25.10 ATHSCL HEART DISEASE OF [place] CORONARY 02/07/2018 DIANELYS NARVAEZ APRN Ot I25 .2 OLD MYOCARDIAL INFARCTION 02/07/2018 DIANELYS NARVAEZ APRN Ot M79.81 NONTRAUMATIC HEMATOMA OF SOFT TISSUE 02/07/2018 DIANELSY NARVAEZ APRN Ot R10.31 RIGHT LOWER QUADRANT PAIN 02/07/2018 DIANELYS NARVAEZ APRN Ot Z79.82 MAT CUTTER (CURRENT) USE OF ASPIRIN 02/07/2018 DIANELYS NARVAEZ APRN Ot Z86.73 PRSNL HX OF TIA (TIA), AND CEREB INFRC W 02/07/2018 DIANELYS NARVAEZ APRN Ot Z95 .5 PRESENCE OF CORONARY ANGIOPLASTY IMPLANT 02/28/2018 BAIALESHA LITTLE L STRUCTURAL ANALYSIS ENGINEER Ot E78.49 OTHER HYPERLIPIDEMIA 02/28/2018 BAIMA ALESHA L STRUCTURAL ANALYSIS ENGINEER Ot I25.10 ATHSCL HEART DISEASE OF [place] CORONARY 02/28/2018 BAIMAALESHA L STRUCTURAL ANALYSIS ENGINEER Ot R00.2 PALPITATIONS 02/28/2018 BAIMA, ALESHA L STRUCTURAL ANALYSIS ENGINEER Ot R06.09 OTHER FORMS OF DYSPNEA 02/28/2018 BAIMA, ALESHA L STRUCTURAL ANALYSIS ENGINEER Ot R07.89 OTHER CHEST PAIN 02/28/2018 BAIMA, ALESHA L STRUCTURAL ANALYSIS ENGINEER Ot Z86.73 PRSNL HX OF TIA (TIA), AND CEREB INFRC W 03/11/2018 BAIMAALESHA STRUCTURAL ANALYSIS ENGINEER Ot E78.49 OTHER HYPERLIPIDEMIA 03/11/2018 BAIMA ALESHA L STRUCTURAL ANALYSIS ENGINEER Ot I25.10 ATHSCL HEART DISEASE OF [place] CORONARY 03/11/2018 BAIMA ALESHA L STRUCTURAL ANALYSIS ENGINEER Ot R00.2 PALPITATIONS 03/11/2018 BAIMA, ALESHA L STRUCTURAL ANALYSIS ENGINEER Ot R06.09 OTHER FORMS OF DYSPNEA 03/11/2018 BAIMA, ALESHA L STRUCTURAL ANALYSIS ENGINEER Ot R07.89 OTHER CHEST PAIN 03/11/2018 BAISIDNEY ALESHA L STRUCTURAL ANALYSIS ENGINEER Ot Z86.73 PRSNL HX OF TIA (TIA), AND CEREB INFRC W 03/12/2018 DIANELYS NARVAEZ APRN Ot I25.10 ATHSCL HEART DISEASE OF [place] CORONARY 03/12/2018 DIANELYS NARVAEZ APRN Ot I25 .2 OLD MYOCARDIAL INFARCTION 03/12/2018 DIANELYS NARVAEZ APRN Ot M79.81 NONTRAUMATIC HEMATOMA OF SOFT TISSUE 03/12/2018 DIANELYS NARVAEZ APRN Ot R10.31 RIGHT LOWER QUADRANT PAIN 03/12/2018 DIANELYS NARVAEZ APRN Ot Z79.82 MAT CUTTER (CURRENT) USE OF ASPIRIN 03/12/2018 DIANELYS NARVAEZ APRN Ot Z86.73 PRSNL HX OF TIA (TIA), AND CEREB INFRC W 03/12/2018 DIANELYS NARVAEZ APRN Ot Z95 .5 PRESENCE OF CORONARY ANGIOPLASTY IMPLANT Procedures Code Description Performed By Bull garcia On [id number] IN [facility] THROMBOLYTIC IN PERIPH VEIN, PERC Eugenie [...] 37 AB CHROMATIN <0.2 AI 0.0-0.9 AB TOWBOAT CAPTAIN <0.2 AI 0.0-0.9 AB SM <0.2 AI [...] aureus (MRSA) scr eening culture NEG NRG Capillary blood glucose measurement by g lucometer (mass/volume) - 07/25/19 02:09 Capillary blood glucose measurement by glucometer (mas s/volume) 103 mg/dL 70-110 Complete blood count (CBC) with automate d white blood cell (WBC) differential - 07/25/19 02:11 Blood leukocytes automated count (number/volume) 9.5 10*3/uL 4.3-11.0 Blood erythrocytes automated count (number/volume) 5.21 10*6/uL 4.35-5.85 Venous blood hemoglobin measurement (mass/volume) 16.5 g/dL 13.3-17.7 Blood hematocrit (volume fraction) 46 % 40-54 Automated erythrocyte mean corpuscular volume 88 [ foz_us] 80-99 Automated erythrocyte mean corpuscular h emoglobin (mass per erythrocyte) 32 pg 25-34 Automated erythrocyte mean corpuscular h emoglobin concentration measurement (mass/volume) 36 g/dL 32-36 Automated erythrocyte distribution width ratio 13. 7 % 10.0- 14.5 Automated blood platelet count (count/volume) 237 10*3/uL 130-400 Automated blood platelet mean volume measurement 11.0 [foz_us] 7.4-10.4 Automated blood neutrophils/100 leukocytes 47 % 42-75 Automated blood lymphocytes/100 leukocytes 37 % 12-44 Blood monocytes/100 leukocytes 12 % 0-12 Automated blood eosinophils/100 leukocytes 5 % 0-10 Automated blood basophils/100 leukocytes 0 % 0-10 Blood neutrophils automated count (number/volume) 4.4 10*3 1.8-7.8 Blood lymphocytes automated count (number/volume) 3.5 10*3 1.0-4.0 Blood monocytes automated count (number/volume) 1. 1 10*3 0.0-1.0 Automated eosinophil count 0.5 10*3/uL 0 .0-0.3 Automated blood basophil count (count/volume) 0.0 10*3/uL 0.0-0.1 Comprehensive metabolic panel - 07/25/19 02:11 Serum or plasma sodium measurement (moles/volume) 140 mmol/L 135-145 Serum or plasma potassium measurement (moles/volume) 3.6 mmol/L 3.6-5.0 Serum or plasma chloride measurement (moles/volume) 106 mmol/L 98-107 Carbon dioxide 23 mmol/L 21-32 Serum or plasma anion gap determination (moles/volume) 11 mmol/L 5-14 Serum or plasma urea nitrogen measurement (mass/volume ) 15 mg/dL 7-18 Serum or plasma creatinine measurement (mass/volume) 1.01 mg/dL 0.60-1.30 Serum or plasma urea nitrogen/creatinine mass ratio 15 NRG Serum or plasma creatinine measurement w ith calculation of estimated glomerular filtration rate > NRG Serum or plasma glucose measurement (mass/volume) 95 mg/dL 70-105 Serum or plasma calcium measurement (mass/volume) 9.0 mg/dL 8.5-10.1 Serum or plasma total bilirubin measurement (mass/volu me) 0.8 mg/dL 0.1-1.0 Serum or plasma alkaline phosphatase bari surement (enzymatic activity/volume) 79 U/L 40-136 Serum or plasma aspartate aminotransfera se measurement (enzymatic activity/volume) 19 U/L 5-34 Serum or plasma alanine aminotransferase measurement (enzymatic activity/volume) 19 U/L 0-55 Serum or plasma protein measurement (mass/volume) 7.0 g/dL 6.4-8.2 Serum or plasma albumin measurement (mass/volume) 4.3 g/dL 3.2-4.5 CALCIUM CORRECTED 8.8 mg/dL 8.5-10.1 PT panel in platelet poor plasma by coag ulation assay - 07/25/19 02:11 Prothrombin time (PT) in platelet poor plasma by coagu lation assay 13.7 s 12.2-14.7 INR in platelet poor plasma or blood by coagulation as say 1.0 0.8-1.4 Activated partial thromboplastin time (a PTT) in platelet poor plasma bycoagulation assay - 07/25/19 02:11 Activated partial thromboplastin time (a PTT) in platelet poor plasma bycoagulation assay 29 s 24-35 Fibrin D-dimer FEU measurement in platel et poor plasma (mass/volume) - 07/25/19 02:11 Fibrin D-dimer FEU measurement in platelet poor plasma (mass/volume) 0.30 ug/mL 0.00-0.49 Serum or plasma troponin i.cardiac measu rement (mass/volume) - 07/25/19 02:11 Serum or plasma troponin i.cardiac measurement (mass/v olume) < ng/mL <0.028 Radiology Report from [id number] on 012 06:08:00 Final ReportADMITTING DIAGNOSIS: CP/SOA r/o dissectionCTA CHEST W W/O CONTRAST - 01/06/2012 [facility] RESULT: INDICATION: Chest and back pain.TECHNIQUE: Multiple [...] dissection.Probable small hepatic cyst.Dictated on workstation # [id number] BY: RICCO PAREKH II, M.D., RADIOLOGISTELECTRONICALLY SIGNED BY: RICCO PAREKH II, M.D., RADIOLOGISTD Jan 06 2012 6:38AT AIG: Jan 08 2012 6:06AS Jan 08 2012 6:06A Radiology Report from SHASHI on 22:43:00 DIAGNOSTIC ABI GING REPORT [facility] - [address] [address] PHONE #: [phone] FAX #: [phone] Name: MALA,REX RAYMOND Loc: W.ED1 3 Radiology No: : 1965 Age: 50 Sex: M Status: ADM IN Unit No: [id number] Phys: Dorina Medina Acct: [id number] Reason For Exam: cannot speak Exam Date: 10/06/2015 EXAMS: CPT CODE: [id number] CT HEAD W/O CONTRAST 27240 REASON FOR EXAM: Expressive aphasia. TIME OF [...] or corrected the resident physician's interpretation. at 7002 RESIDENT: BRITTANI NANCE MD Reported and signed by: RODGER FORTE MD PAGE 1 Signed Report (CONTINUED) DIAGNOSTIC IMAGING REPORT [facility] - [address] [place] [address] PHONE #: [phone] FAX #: [phone] Name: LEMUEL MEDEIROS Loc: W.ED1 3 Radiology No: : 1965 Age: 50 Sex: M Status: ADM IN Unit No: [id number] Phys: Dorina Medina Acct: [id number] Reason For Exam: cannot speak Exam Date: 10/06/2015 --------- EXAMS: CPT CODE: [id number] CT HEAD W/O CONTRAST 05207 <Continued> CC: Technologist: BRENDEN CRUZ Transcribed Date/Time: 10/06/2015 (0360)Anthropology And Archeology Instructor: HUSSAIN Printed Date/Time: 10/06/2015 (2679) BATCH NO: N/A PAGE 2 Signed Report Radiology Report from SHASHI on 016 06:34:00 DIAGNOSTIC ABI GING REPORT [facility] - [address] [address] PHONE #: [phone] FAX #: [phone] Name: LEMUEL MEDEIROS RAYMOND Loc: W.7204 1 Radiology No: : 1965 Age: 50 Sex: M Status: ADM IN Unit No: [id number] Phys: Dorina Medina Acct: [id number] Reason For Exam: stroke Exam Date: 10/06/2015 EXAMS: CPT CODE: [id number] CT ANGIO NECK 99534 REASON FOR EXAM: Evaluate for possible thrombus. [...] 1 Signed Report (CONTINUED) DIAGNOSTIC IMAGING REPORT [facility] - [address] [place] [address] PHONE #: [phone] FAX #: [phone] Name: LEMUEL MEDEIROS Loc: W.7204 1 Radiology No: : 1965 Age: 50 Sex: M Status: ADM IN Unit No: [id number] Phys: Dorina Medina Acct: [id number] Reason For Exam: alice for Exam: stroke Exam Date: 10/06/2015--------- EXAMS: CPT CODE: [id number] CT ANGIO NECK 89175 <Continued> 1. Normal appearance of the carotid [...] MD Technologist: NO SR Transcribed Date/Time: 10/07/2015 (627)Anthropology And Archeology Instructor: PMCGUCHW Printed Date/Time: 10/07/2015 (22) BATCH NO: N/A PAGE 2 Signed Report Radiology Report from SHASHI on 016 09:10:00 DIAGNOSTIC ABI GING REPORT [facility] - [address] [address] PHONE #: [phone] FAX #: [phone] Name: LEMUEL MEDEIROS Loc: W.7204 1 Radiology No: : 1965 Age: 50 Sex: M Status: ADM IN Unit No: [id number] Phys: Dorina Medina Acct: [id number] Reason For Exam: stroke Exam Date: 10/06/2015 EXAMS: CPT CODE: [id number] CT ANGIO HEAD 42449 DATE: 10/06/2015 11:45 PM REASON FOR EXAM: Stroke COMPARISON: CT head 10/06/2015 9:54 PM. TECHNIQUE: Noncontrast enhanced images were obtained through the region of the [place]. Contrast enhanced thin section helical images were obtained through the brain with the bolus of contrast timed for the optimal opacification of the arterial structures of the [place] per departmental CTA protocol; post-processing, [...] 1 Signed Report (CONTINUED) DIAGNOSTIC IMAGING REPORT [facility] - [address] [place] [address] PHONE #: [phone] FAX #: [phone] Name: LEMUEL MEDEIROS Loc: W.7204 1 Radiology No: : 1965 Age: 50 Sex: M Status: ADM IN Unit No: [id number] Phys: Dorina Medina Acct: [id number] Reason For Exam: alice for Exam: stroke Exam Date: 10/06/2015 --------- EXAMS: CPT CODE: [id number] CT ANGIO HEAD 58423 <Continued> IMPRESSION: 1. No acute thrombus or dissection involving the [place]. 2. No AVM or aneurysm [...] SILVA MD CC: Rosario Traore MD Technologist: ON SR Transcribed Date/Time: 10/07/2015 (0904)Anthropology And Archeology Instructor: PMCGUCHW Printed Date/Time: 10/07/2015 (0910) BATCH NO: N/A PAGE 2 Signed Report Radiology Report from KATELIN on 10/07/19 16 11:47:00 DIAGNOSTIC ABI GING REPORT [facility] - [address] [address] PHONE #: [phone] FAX #: [phone] Name: LEMUEL MEDEIROS Loc: W.7204 1 Radiology No: : 1965 Age: 50 Sex: M Status: ADM IN Unit No: [id number] Phys: Ondina Charles APRN Acct: [id number] Reason For Exam: s/p tpa, stroke syndrome Exam Date: 10/07/2015 EXAMS: CPT CODE: [id number] MRI BRAIN W/O CONTR 13600 Exam: MRI brain without contrast Reason for [...] 1 Signed Report (CONTINUED) DIAGNOSTIC IMAGING REPORT [facility] - [address], [place] [address] PHONE #: [phone] FAX #: [phone] -------- Name: LEMUEL MEDEIROS Loc: W.7204 1 Radiology No: : 1965 Age: 50 Sex: M Status: ADM IN Unit No: [id number] Phys: Ondina Charles APRN Acct: [id number] Reason For Exam: s/p tpa, stroke syndrome Exam Date: 10/07/2015 EXAMS: CPT CODE: [id number] MRI BRAIN W/O CONTR 60839 <Continued> at 1142 Reported and signed by: TAHIR TANG MD CC: Rosario Traore MD Technologist: DYLON CELIS Transcribed Date/Time: 10/07/2015 (1142)Anthropology And Archeology Instructor: MAYTE Printed Date/Time: 10/07/2015 (1147) BATCH NO: N/A PAGE 2 Signed Report Encounters ACCT No. Visit Date/Time Discharge Status Pt. Type Provider Facility Loc./Unit Complaint [id number] 02/18/2019 16:00:00 02/18/2019 23:59: 59 CLS Outpatient DEBRA CALEB [facility] [id number] 10/17/2017 13:00:00 Document Registration [id number] 10/06/2015 22:29:00 016 14:44:00 DIS Inpatient Eugenie VINSON, Rosario P [facility] W.10TN [id number] 02/01/2018 14:43:00 018 16:18:00 DIS Outpatient DIANELYS NARVAEZ APRN [facility] ER WOUND INFECTION [id number] 01/22/2018 06:52:00 018 13:48:00 DIS Outpatient HECTOR VINSON FACC, MIGUEL ECHEVARRIA CC DS [facility] CATH CHEST DISCOMFORT,DYSPNEA ON EXERTION,PALPITATIONS [id number] 01/21/2018 08:42:00 018 23:59:59 CLS Outpatient ALESHA SHORT [facility] CARD CHEST DISCOMFOR T,HEART PALPITATIONS [id number] 07/25/2019 02:16:00 Document Registration [id number] 2012 21:14:00 01/06/20 12 03:56:00 DIS Emergency Pierre Sterling DO [facility] [address] FERM
[2019-07-25] MEDS ORDERED: ACETAMINOPHEN 325 MG PO PRN (04:45)
[2019-07-25] MEDS ORDERED: ACETAMINOPHEN 325 MG/10.15 ML PO PRN (04:45)
[2019-07-25] MEDS ORDERED: ACETAMINOPHEN 650 MG PR PRN (04:45)
[2019-07-25] MEDS: niCARdipine 50 MG/NS 250 ML IV DRIP IV SCH ×4 (06:08→11:35)
[2019-07-25] MEDS: NS IV 1000 ML 1,000 ML IV SCH ×2 (06:08→13:18)
--- NOTE | 2019-07-25 06:53 | Diagnostic Imaging Report ---
EXAMINATION: Chest radiograph, portable AP view. DATE: 07/25/2019 2:39 AM hours. INDICATION: 54-year-old male, aphasia and dysarthria. COMPARISON: January 05, 2012. FINDINGS: Heart size and mediastinal contours are unchanged. There is no identified pneumothorax. There is no large pleural effusion. There is no identified focal airspace consolidation. IMPRESSION: No identified acute cardiopulmonary abnormality. Dictated by: Dictated on workstation # [id number]
--- NOTE | 2019-07-25 08:41 | Diagnostic Imaging Report ---
PROCEDURE: CT angiography of the head and CT angiography of the neck with and without contrast. TECHNIQUE: Contiguous noncontrast images were obtained from the skull base through the vertex. After intravenous contrast administration, helical CT angiography of the neck was performed. Source data was reformatted into 3D MIP projections. Delayed post contrast acquisition was also obtained. Auto Exposure Controls were utilized during the CT exam to meet ALARA standards for radiation dose reduction. DATE: July 25, 2019. INDICATION: 54-year-old male, aphasia and dysarthria. Difficulty speaking and walking. COMPARISON: None. FINDINGS: There is an area of near CSF attenuation in the anterior aspect of the left frontal lobe on axial image 11 which could relate to an area of encephalomalacia. The ventricles and CSF spaces are normal in size and configuration for patient age. There is no abnormal extra-axial fluid collection. There is no evidence of acute intracranial hemorrhage. There is no mass effect or midline shift. The visualized portions of the paranasal sinuses, mastoid air cells, and middle ears are well aerated. There is no identified abnormal intracranial enhancement. The left common carotid artery is patent. The left internal carotid artery is patent and without high-grade stenosis. There are calcifications of the cavernous segment of the left internal carotid artery. The left middle cerebral artery has an abrupt loss of blood flow in a peripheral distribution in the left frontotemporal region. This could relate to a peripheral occlusion of the left middle cerebral artery at this location. The left anterior cerebral artery is patent. The right anterior cerebral artery is patent. The right middle cerebral artery is patent. The right internal carotid artery is patent without stenosis. There are minimal areas of calcification associated with the cavernous segment of the right internal carotid artery. The right common carotid artery is patent. There is conventional origin of the left vertebral artery. The left vertebral artery is patent. The basilar artery is patent. The right and left posterior inferior cerebellar arteries are patent. The right and left posterior cerebral arteries are patent. There are patent bilateral posterior communicating arteries. The right vertebral artery is patent and conventional in origin. The visualized portions of the lungs are clear. There are degenerative changes of the cervical spine. IMPRESSION: 1. Abrupt loss of blood flow in the peripheral branch of the left middle cerebral artery in the left frontotemporal region which could relate to occlusion of this peripheral vessel. This does raise concern for potential infarct in this distribution without CT correlate abnormality at this time. Recommend MRI brain for further evaluation. 2. No evidence of a large vessel thrombus. 3. No evidence of significant carotid stenosis. 4. No evidence of acute intracranial hemorrhage. Called to Deborah at 8:40 a.m. by cvb. Dictated by: Dictated on workstation # [id number]
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
--- NOTE | 2019-07-25 10:27 | Physical Therapy Evaluation ---
PT Evaluation-General Medical Diagnosis Admission Date Jul 25, 2019 at 03:54 Medical Diagnosis: acute CVA Onset Date: Jul 25, 2019 Therapy Diagnosis Therapy Diagnosis: debility Height/Weight Height (Feet): 5 Height (Inches): 9.00 Weight (Pounds): 175 Weight (Ounces): 0.0 Precautions Precautions/Isolations: Standard Precautions Weight Bear Status Right Lower Extremity: Right Full Weight Bearing Left Lower Extremity: Left Full Weight Bearing Referral Physician: Dimitris Reason for Referral: Evaluation/Treatment Medical History Pertinent Medical History: CAD, CVA, [place], Smoking Additional Medical History received TPA Current History EMS secondary to woke up with aphasia/dysarthria and difficulty ambulating Reviewed History: Yes Social History Home: Single Level Current Living Status: Significant Other Entry Into Home: Stairs With Railing PT Steps Into Home: 3 Prior Prior Level of Function SCALE: Activities may be completed with or without assistive devices. 6-Bjhvbndzuf-jdjrtpj completes the activity by him/herself with no assistance from a helper. 5-Set-up or Clean-up Assistance-helper sets up or cleans up; patient completes activity. [place] assists only prior to or following the activity. 4-Supervision or Touching Assistance-helper provides verbal cues and/or touching/steadying and/or contact guard assistance as patient completes activity. Assistance may be provided throughout the activity or intermittently. 3-Partial/Moderate Assistance-helper does LESS THAN HALF the effort. [place] lifts, holds or supports trunk or limbs, but provides less than half the effort. 2-Substantial/Maximal Assistance-helper does MORE THAN HALF the effort. [place] lifts or holds trunk or limbs and provides more than half the effort. 1-Kdwjlqgla-avqbrv does ALL the effort. Patient does none of the effort to complete the activity. Or, the assistance of 2 or more helpers is required for the patient to complete the activity. If activity was not attempted, code reason: 7-Patient Refused. 9-Not Applicable-not attempted and the patient did not perform the activity before the current illness, exacerbation or injury. 10-Not Attempted due to Environmental Limitations-(lack of equipment, weather restraints, etc.). 88-Not Attempted due to Medical Conditions or Safety Concerns. Bed Mobility: 6 Transfers (B,C,W/C): 6 Gait: 6 Stairs: 6 Indoor Mobility (Ambulation): Independent Stairs: Independent Prior Devices Use: None PT Evaluation-Current Subjective Patient agrees to PT. No c/o. Pain Numeric Pain Scale: 0-No Pain Location: No Pain Reported Objective Patient Orientation: Normal For Age Attachments: IV ROM/Strength ROM Lower Extremities bilateral LE WFL Strength Lower Extremities 5/5 grossly bilateral LE Integumentary/Posture Integumentary refer to nursing notes Bowel Incontinence: No Bladder Incontinence: No Posture WFL Neuromuscular (Tone, Coordination, Reflexes) grossly intact with all Sensory Vision: Functional Hearing: Functional Sensation Right Lower Extremit: Intact Sensation Left Lower Extremity: Intact Transfers Roll Left to Right (QC): 6 Sit to Lying (QC): 6 Lying to Sitting/Side of Bed(Q: 6 Sit to Stand (QC): 6 Gait Does the Patient Walk?: Yes Mode of Locomotion: Walk Anticipated Mode of Locomotion: Walk Walk 10 feet (QC): 6 Distance: 10' x 4 Gait Assistive Device: None Comments/Gait Description no deviation or LOB Balance Sitting Static: Normal Sitting Dynamic: Normal Standing Static: Normal Standing Dynamic: Normal Assessment/Needs 54 y.o. male, is currently at [facility] with all gross motor skills and does not require skilled therapy intervention. Rehab Potential: Fair PT Plan Treatment/Plan Treatment Plan: Discontinue PT, goals met Treatment Duration: Jul 25, 2019 Frequency: 1 time per week Estimated Hrs Per Day: .25 hour per day Patient and/or Family Agrees t: Yes Discharge Recommendations Therapy Discharge Recommendati: Home & Family Time/GCodes Time In: 925 Time Out: 934 Total Billed Treatment Time: 9 Total Billed Treatment 1 visit EVLow 9 min NATALIA NGUYEN PT Jul 25, 2019 10:27
--- NOTE | 2019-07-25 10:55 | Diagnostic Imaging Report ---
PROCEDURE: MR imaging of the brain without contrast. TECHNIQUE: Multiplanar, multisequence MR imaging of the brain was performed without contrast. INDICATION: Indication difficulty speech, strokelike symptoms. Study interpreted in correlation with CT angiogram performed earlier this same date. FINDINGS: There is a small area of edema and diffusion restriction in the left temporal lobe along the posterior sylvian fissure corresponding to the area of vessel occlusion in the distal left M3 segment. This very small area of infarct measures 1 cm maximal and exerts no mass effect and has no hemorrhagic component. No additional foci of acute or subacute ischemia are found. Some chronic appearing gliotic changes and foci of encephalomalacia involving the left frontal lobe, the high left frontoparietal lobe and the right temporal and parietal lobes. There is no hydrocephalus. No mass effect. IMPRESSION: There is a small left infarct along the sylvian fissure corresponding to the small peripheral vessel occlusion discussed on CT angiography report. No hemorrhagic component or mass effect. There are multifocal additional old areas of likely cortical ischemia bilaterally distributed as described. Dictated by: Dictated on workstation # [id number]
--- NOTE | 2019-07-25 11:10 | History & Physical-Hospitalist ---
History of Present Illness HPI/Chief Complaint This is a 54-year-old white male who had gone to bed feeling well and then awakened at about 130 in the morning unable to walk was falling and couldn't talk. He presented to the emergency room with similar symptoms that were waxing and waning. Patient received thrombolytic therapy after consultation with [facility] stroke team with improvement of his symptoms. The CT head showed occlusion of the distal left middle cerebral artery. MRI this morning showed a small left 1 cm infarct among the fissure and occlusion of the distal left M 3 branch. The patient had had a previous stroke about 4 years ago. Has continued to smoke. The patient is feeling much better this morning. He has been able to walk and use the facilities without problem but he remains dysarthric. Source: patient Exam Limitations: other Date Seen 07/25/19 Time Seen by a Provider: 10:15 Attending Physician Sarah Arechiga MD PCP No,Local Physician Referring Physician Date of Admission Jul 25, 2019 at 03:54 Home Medications & Allergies Home Medications Reviewed patient Home Medication Reconciliation performed by pharmacy medication reconciliations substation technician and/or nursing. Patients Allergies have been reviewed. Allergies Allergies Coded Allergies No Known Drug Allergies (Rvrbkbporz55/18/18) Past Vyalcdz-Fsrfup-Fmxvbq Hx Past Med/Social Hx: Reviewed Nursing Past Med/Soc Hx Patient Social History Marrital Status: single Employed/Student: employed Alcohol Use: Denies Use Recreational Drug Use: No Smoking Status: Current Everyday Smoker Type Used: Cigarettes 2nd Hand Smoke Exposure: Yes Recent Foreign Travel: No Contact w/other who traveled: No Recent Hopitalizations: No Recent Infectious Disease Expo: No Immunizations Up To Date Tetanus Booster (TDap): Unknown Seasonal Allergies Seasonal Allergies: No Past Medical History Surgeries: Coronary Stent Cardiac: Coronary Artery Disease, Heart Attack Neurological: Stroke History of Blood Disorders: No Family History Reviewed Nursing Family Hx Review of Systems Constitutional: see HPI EENTM: other (Trouble talking) Respiratory: no symptoms reported Cardiovascular: no symptoms reported Gastrointestinal: no symptoms reported Genitourinary: no symptoms reported Musculoskeletal: no symptoms reported Skin: no symptoms reported Psychiatric/Neurological: Emotional Problems Physical Exam Physical Exam Vital Signs Vital Signs - First Documented 07/25/19 02:04 Temp 36.8 Pulse 73 Resp 18 B/P (MAP) 129/101 (110) Pulse Ox 96 O2 Delivery Room Air Capillary Refill : Less Than 3 Seconds Height, Weight, BMI Height: 5'9.00" Weight: 175lbs. 0.0oz. [id number]; 25.00 BMI Method:Stated General Appearance: No Apparent Distress, WD/WN HEENT: Normal ENT Inspection Neck: Full Range of Motion, Non Tender, Supple Respiratory: Chest Non Tender, Normal Breath Sounds, No Accessory Muscle Use, No Respiratory Distress, Rhonci Cardiovascular: Regular Rate, Rhythm, No Gallop, No Murmur Gastrointestinal: Normal Bowel Sounds, Non Tender, Soft Back: Normal Inspection, No CVA Tenderness, No Vertebral Tenderness Extremity: Normal Range of Motion, Non Tender, No Calf Tenderness, No Pedal Edema, Slow Capillary Refill Neurologic/Psychiatric: Alert, Oriented x3, Other (Dysarthria, tearful) Skin: Normal Color, Warm/Dry Lymphatic: No Adenopathy Comments Muscle strength is 5 over 5, Romberg's is negative, gait is normal, cranial nerves II through XII except for dysarthria is intact, swallowing is intact. Finger to nose is normal small muscle dexterity is normal Results Results/Procedures Labs Patient resulted labs reviewed. Imaging: Reviewed Imaging Report Assessment/Plan Admission Diagnosis Left-sided CVA of the distal left M 3 artery -status post TPA Peripheral vascular disease will recheck carotid Dopplers Coronary artery disease with a history of stent placement, we will check an echocardiogram Tobaccoism non-curtailed counseling Plan for speech therapy,occupational therapy, physical therapy and tobacco cessation counseling Admission Status: Inpatient Order (span 2 midnights) Reason for Inpatient Admission: Patient has had a stroke and is status post TPA with other comorbidities requiring physical therapy and speech therapy. Clinical Quality Measures DVT/VTE Risk/Contraindication: Risk Factor Score Per Nursin RFS Level Per Nursing on Admit: 1=Low/No VTE PPX Stroke: Date of last known well: Jul 25, 2019 SARAH ARECHIGA MD Jul 25, 2019 11:10
--- NOTE | 2019-07-25 12:27 | NUR ---
SPOKE WITH THE PT TO COMPLETE THE MED REC PT DENIES TAKING ANY PRESCRIPTION OR OTC MEDICATIONS
--- NOTE | 2019-07-25 12:45 | Diagnostic Imaging Report ---
CLINICAL INDICATION: Patient with acute CVA. COMPARISON: MRI of the brain performed without contrast dated 07/25/2019. EXAM: Real-time carotid Doppler duplex imaging is performed bilaterally. Peak systolic velocity, ICA/CCA peak systolic ratio, spectral analysis, and vascular morphology are studied. FINDINGS: ARTERY VELOCITY Right Left CCA 0.80 m/s 0.70 m/s ICA 0.80 m/s 0.48 m/s ECA 0.98 m/s 0.91 m/s ICA/CCA 0.67 0.70 VERT.ART Antegrade Antegrade There is minimal bilateral carotid artery atherosclerotic disease with no grayscale evidence of stenosis. Irregular heart rate is noted. IMPRESSION: 1: There is minimal bilateral carotid artery atherosclerotic disease with no grayscale or Doppler evidence of significant vascular stenosis. 2: Irregular heart rate is noted. Dictated by: Dictated on workstation # [id number]
--- NOTE | 2019-07-25 12:56 | NUR ---
IRF Evaluation Order received to evaluate patient for the ARU. Chart review complete and it appears patient is independent with ambulation (10ft x 4, no AD), transfers and bed mobility; therefore, patient does not require intensive therapies. Thank you for this referral.
--- NOTE | 2019-07-25 13:19 | ST Dysphagia Evaluation ---
Speech Evaluation-General Medical Diagnosis acute CVA Onset Date: Jul 25, 2019 Therapy Diagnosis Therapy Diagnosis: Oropharyngeal dysphagia Precautions Precautions: Aspiration Referral Referring Physician: Dr. Shanks Reason for Referral: Evaluation/Treatment Medical History Pertinent Medical History: CAD, CVA, [place], Smoking Reviewed History: Yes Social History Current Living Status: Significant Other Speech PLF/Current-Dysphagia Prior Level of Function Patient lived in his own home where he was independent for his daily needs. Subjective Patient was pleasant and cooperative with the dysphagia evaluation. Cognitive Status Patient Orientation: Person, Place, Situation Oral Motor Skills Dentition: Natural Ability to Follow Directions: Good Patient was NPO pending BDE. Oral Expression Ability: Mild Impairment Patient exhibits apraxia due to the CVA. Voice Voice Phonatory-Based Quality: Breathy Voice Pitch: Normal Voice Loudness: Mildly Soft/Quiet Face Facial Symmetry: Symmetrical Oral-Facial Assessment Oral-Facial Dentition: Normal Labial Seal Description: Normal Smile: Normal Lingual Protrusion: Normal Lingual ROM: Normal Lingual Strength: Normal Pharynx Velopharyngeal Move.: Normal Volitional Dry Swallow: Yes Voluntary Cough: Yes Can Clear Throat Volitionally: Yes Dysphagia Evaluation Consistencies Presented: Regular, Thin Liquid, Mechanical Soft, Pureed Oral phase is within normal limits for all consistencies presented. Pharyngeal phase is within normal limits for all consistencies presented. Dietary Recommendations: Regular Liquid Recommendations: Thin Swallowing Precautions: Alternate Liquids/Solids, Double Swallow, Decreased Bolus 1/2 Tsp, Liquids from Straw, Small Bites and Sips, Sitting Upright 90 Degrees, Sitting 90 Degrees 30 Post Intake Dysphagia Evaluation Summary Patient is a pleasant 54 y/o male who was presented to the ED with stroke like symptoms. Patient's medical history is positive for previous CVA approximately 4 yrs. ago. Patient completed the BDE with presentations of thin at 1/2 tsp x2 and sips via straw x2 without difficulty. Patient was also presented 1/2 tsp of puree, mechanical soft and regular consistencies without difficulty. Patient's speech is at 75% intelligibility, however he is able to communicate wants/needs effectively. Patient will receive skilled ST for speech improvement. Patient is recommended for regular diet level with thin liquids. This information was presented to his nurse and written on the white board in his room. Speech Short Term Goals Short Term Goals Short Term Goals 1) Patient will complete oral motor exercises for improved speech production at 90% with minimal cues. 2) Patient will complete speech production exercises at the sentence level with 90% given minimal cues. Speech Alf Goals Ticket Counter Goals Patient will improve his intelligibility for speech production for increased effective communication of wants/needs. Speech-Plan Patient/Family Goals Patient/Family Goals: Patient plans on returning to his home upon discharge. Treatment Plan Speech Therapy Treatment Plan: Continue Plan of Care Frequency: 3 times per week Estimated Hrs Per Day: .25 hour per day Rehab Potential: Fair Barriers to Learning: Patient's recent CVA affects Pt/Family Agrees to Plan: Yes Safety Risks/Education Teaching Recipient: Patient Teaching Methods: Demonstration, Discussion Response to Teaching: Verbalize Understanding, Return Demonstration Education Topics Provided: Safety with oral intake and speech production exercises Time Speech Therapy Time In: 08:00 Speech Therapy Time Out: 08:15 Total Billed Time: 15 Billed Treatment Time Eleuterio FRANCISCA Jones Jul 25, 2019 13:19
--- NOTE | 2019-07-25 20:00 | NUR ---
Spoke to Dr. Ardon and informed her that pt is requesting to have IV fluids DC'D, medication to help him sleep and to be able to take BP and O2 monitor off for the night. Telephone orders received for Melatonin 3mg PO HS PRN, the okay to DC fluids and the okay to check vital signs along with neuro checks Q4hrs. Will carry out orders and continue to monitor pt.
[2019-07-25] MEDS ORDERED: MELATONIN 3 MG TABLET PO PRN (20:30)
[2019-07-26] MEDS: niCARdipine 50 MG/NS 250 ML IV DRIP IV SCH ×4 (00:50→12:14)
[2019-07-26 04:00] VITALS: BP 107/74
[2019-07-26 04:50] VITALS: BP 107/74
[2019-07-26 05:45] LABS: BASOPHILS % (AUTO) 0 % (0-10); EOSINOPHILS # (AUTO) 0.3 10^3/uL (0.0-0.3); EOSINOPHILS % (AUTO) 4 % (0-10); HEMATOCRIT 44 % (40-54); HEMOGLOBIN 15.5 G/DL (13.3-17.7); LYMPHOCYTES # (AUTO) 1.9 X 10^3 (1.0-4.0); LYMPHOCYTES % (AUTO) 24 % (12-44); MEAN CORPUSCULAR HEMOGLOBIN 31 PG (25-34); MEAN CORPUSCULAR HGB CONC 35 G/DL (32-36); MEAN CORPUSCULAR VOLUME 89 FL (80-99); MEAN PLATELET VOLUME 11.1 FL (7.4-10.4); MONOCYTES # (AUTO) 0.8 X 10^3 (0.0-1.0); MONOCYTES % (AUTO) 10 % (0-12); NEUTROPHILS % (AUTO) 63 % (42-75); PLATELET COUNT 206 10^3/uL (130-400); RED CELL DISTRIBUTION WIDTH 13.8 % (10.0-14.5)
[2019-07-26 06:04] LABS: CHLORIDE 109 MMOL/L (98-107); POTASSIUM 4.4 MMOL/L (3.6-5.0); SODIUM 141 MMOL/L (135-145)
[2019-07-26 06:05] LABS: CALCIUM 8.8 MG/DL (8.5-10.1)
[2019-07-26 06:06] LABS: GLUCOSE 87 MG/DL (70-105); TRIGLYCERIDES 94 MG/DL (<150); VLDL CHOLESTEROL 19 MG/DL (5-40)
[2019-07-26 06:07] LABS: CARBON DIOXIDE 22 MMOL/L (21-32)
[2019-07-26 06:09] LABS: PHOSPHORUS 2.4 MG/DL (2.3-4.7)
[2019-07-26 06:10] LABS: CREATININE SERUM 0.85 MG/DL (0.60-1.30); GFR ESTIMATED > 60
[2019-07-26 06:11] LABS: BUN/CREATININE RATIO 12; CHOLESTEROL 149 MG/DL (< 200)
[2019-07-26 06:12] LABS: HDL CHOLESTEROL 31 MG/DL (40-60)
[2019-07-26 06:13] LABS: MAGNESIUM 1.9 MG/DL (1.6-2.4)
--- NOTE | 2019-07-26 07:48 | Diagnostic Imaging Report ---
INDICATION: Acute CVA COMPARISON: 07/25/2019 FINDINGS: Single frontal view of the chest demonstrates normal heart size and pulmonary vascularity. The lungs are well aerated and clear. No large pleural effusion or pneumothorax is seen. The visualized osseous structures show no acute abnormalities. IMPRESSION: 1. No acute cardiopulmonary process. Dictated by: Dictated on workstation # [id number]
--- NOTE | 2019-07-26 08:45 | Diagnostic Imaging Report ---
PROCEDURE: CT head without contrast. TECHNIQUE: Multiple contiguous axial images were obtained through the brain without the use of intravenous contrast. Auto Exposure Controls were utilized during the CT exam to meet ALARA standards for radiation dose reduction. INDICATION: CVA. COMPARISON: CT and MR of the brain from 07/25/2019 FINDINGS: There is no new loss of byers-white matter junction differentiation to suggest new large acute territorial infarct. Small left insular infarct seen on previous MR is inconspicuous on this exam. There is however no evidence of hemorrhagic transformation. Ventricles and cortical sulci are otherwise stable in size and contour. Old small infarct of the posterior right temporal lobe and left frontal lobe are again noted. There is no new mass effect or midline shift. No focal calvarial lesions are seen. Included portions of the ventricles and cortical sulci are clear. IMPRESSION: 1. Patient's known left insular infarct is inconspicuous on this exam. There is however no evidence of new hemorrhagic transformation. 2. Otherwise, stable CT of the head. Dictated by: Dictated on workstation # [id number]
[2019-07-26 09:00] VITALS: BP 115/82
[2019-07-26] MEDS ORDERED: ASPIRIN E.C. 81 MG (ECOTRIN) TAB PO SCH (09:30)
--- NOTE | 2019-07-26 12:36 | Consultation-Cardiology ---
HPI-Cardiology Cardiology Consultation Date of Consultation 07/26/19 Date of Admission Time Seen by Provider: 12:31 Indication: acute CVA HPI 54 years old gentleman with history of stroke in 2016, history of myocardial infarction in 2011 requiring 4 stents. Presented to the emergency room with slurred speech and generalized weakness, had an acute CVA and received thrombolytic therapy. On my evaluation was feeling better, no focal weakness, still having slurred speech. No chest pain. No palpitation. Home Medications & Allergies Allergies: Coded Allergies: No Known Drug Allergies (Unverified , 01/22/18) Home Medication List Reviewed: Yes [id number] Hx Patient Social History Marital Status: single Employed/Student: employed Alcohol Use: Denies Use Recreational Drug Use: No Smoking Status: Current Everyday Smoker Type Used: Cigarettes 2nd Hand Smoke Exposure: Yes Recent Foreign Travel: No Recent Infectious Disease Expo: No Recent Hopitalizations: No Immunizations Up To Date Tetanus Booster (TDap): Unknown Past Medical History Discussed below Family Medical History Family Medical Hx Noncontributory Review of Systems-General Review of Systems Constitutional: see HPI, weakness EENTM: see HPI, other (Trouble talking) Respiratory: see HPI; No cough, No dyspnea on exertion, No hemoptysis, No orthopnea, No phlegm, No short of breath, No stridor, No wheezing, No other Cardiovascular: see HPI, chest pain, edema, Hx of Intervention, palpitations, syncope, vascular heart diseas, other Gastrointestinal: no symptoms reported, see HPI Genitourinary: no symptoms reported, see HPI Musculoskeletal: no symptoms reported, see HPI Skin: no symptoms reported, see HPI Psychiatric/Neurological: Emotional Problems All Other Systems Reviewed Negative Unless Noted: Yes Reviewed Test Results Reviewed Test Results Lab Laboratory Tests Test 07/26/19 05:25 Range/Units White Blood Count 8.0 4.3-11.0 10^3/uL Red Blood Count 4.97 4.35-5.85 10^6/uL Hemoglobin 15.5 13.3-17.7 G/DL Hematocrit 44 40-54 % Mean Corpuscular Volume 89 80-99 FL Mean Corpuscular Hemoglobin 31 25-34 PG Mean Corpuscular Hemoglobin Concent 35 32-36 G/DL Red Cell Distribution Width 13.8 10.0-14.5 % Platelet Count 206 130-400 10^3/uL Mean Platelet Volume 11.1 H 7.4-10.4 FL Neutrophils (%) (Auto) 63 42-75 % Lymphocytes (%) (Auto) 24 12-44 % Monocytes (%) (Auto) 10 0-12 % Eosinophils (%) (Auto) 4 0-10 % Basophils (%) (Auto) 0 0-10 % Neutrophils # (Auto) 5.0 1.8-7.8 X 10^3 Lymphocytes # (Auto) 1.9 1.0-4.0 X 10^3 Monocytes # (Auto) 0.8 0.0-1.0 X 10^3 Eosinophils # (Auto) 0.3 0.0-0.3 10^3/uL Basophils # (Auto) 0.0 0.0-0.1 10^3/uL Sodium Level 141 135-145 MMOL/L Potassium Level 4.4 3.6-5.0 MMOL/L Chloride Level 109 H 98-107 MMOL/L Carbon Dioxide Level 22 21-32 MMOL/L Anion Gap 10 5-14 MMOL/L Blood Urea Nitrogen 10 7-18 MG/DL Creatinine 0.85 0.60-1.30 MG/DL Estimat Glomerular Filtration Rate > 60 BUN/Creatinine Ratio 12 Glucose Level 87 70-105 MG/DL Calcium Level 8.8 8.5-10.1 MG/DL Phosphorus Level 2.4 2.3-4.7 MG/DL Magnesium Level 1.9 1.6-2.4 MG/DL Triglycerides Level 94 <150 MG/DL Cholesterol Level 149 < 200 MG/DL LDL Cholesterol Direct 114 1-129 MG/DL VLDL Cholesterol 19 5-40 MG/DL HDL Cholesterol 31 L 40-60 MG/DL Physical Exam Physical Exam Vital Signs Vital Signs - First Documented 07/25/19 02:04 Temp 36.8 Pulse 73 Resp 18 B/P (MAP) 129/101 (110) Pulse Ox 96 O2 Delivery Room Air Capillary Refill : Less Than 3 Seconds Height, Weight, BMI Height: 5'9.00" Weight: 175lbs. 0.0oz. 79.001328ih; 25.00 BMI Method:Stated General Appearance: No Apparent Distress, WD/WN HEENT: Normal ENT Inspection Neck: Full Range of Motion, Non Tender, Supple Respiratory: Chest Non Tender, Normal Breath Sounds, No Accessory Muscle Use, No Respiratory Distress, Rhonci Cardiovascular: Regular Rate, Rhythm, No Gallop, No Murmur Gastrointestinal: Normal Bowel Sounds, Non Tender, Soft Back: Normal Inspection, No CVA Tenderness, No Vertebral Tenderness Extremity: Normal Range of Motion, Non Tender, No Calf Tenderness, No Pedal Edema, Slow Capillary Refill Neurologic/Psychiatric: Alert, Oriented x3, Other (Dysarthria, tearful) Skin: Normal Color, Warm/Dry Lymphatic: No Adenopathy A/P-Cardiology Admission Diagnosis Acute CVA Coronary artery disease Congestive heart failure, chronic compensated left ventricular systolic dysfunction, ischemic cardiomyopathy Hyperlipidemia Assessment/Plan Acute CVA, recurrent stroke, received TPA, started on aspirin, I'll add Plavix and monitor as an outpatient. This is his second stroke, probably cryptogenic. No other source was noted, patient has been noncompliant. I will arrange for follow-up and consider loop recorder implant Coronary artery disease, history of 4 stents done in 2010, noncompliant with any medication or follow-up. I educated him about compliance and taking care of his cardiovascular system and taking aspirin at least. Congestive heart failure, chronic left ventricular systolic dysfunction, compensated, probably ischemic in nature, ejection fraction 40-45 percent, starting low-dose Toprol and losartan and evaluate tolerance and response. Hyperlipidemia, started on Lipitor 80 mg daily Tobaccoism, educated on smoking cessation Clinical Quality Measures DVT/VTE Risk/Contraindication: Risk Factor Score Per Nursin RFS Level Per Nursing on Admit: 1=Low/No VTE PPX Stroke: Date of last known well: Jul 25, 2019 MARIANGEL US MD Jul 26, 2019 12:36 pm
--- NOTE | 2019-07-26 12:48 | Discharge Inst-Simple/Standard ---
Discharge Inst-Standard Reconcile Patient Problems Problems Reviewed?: Yes Patient Instructions/Follow Up Plan of Care/Instructions/FU: Please continue to take your medications as written. Please follow up with a primary care doctor in the next week and with Dr Staton as scheduled. Activity as Tolerated: Yes Discharge Diet: Cardiac Diet Return to The Hospital For: Chest pain, shortness of breath, fever, slurred speech, facial droop, weakness, if you feel you are getting worse. BINU ROUSE MD Jul 26, 2019 12:48
--- NOTE | 2019-07-26 12:53 | Discharge Summary ---
Diagnosis/Chief Complaint Date of Admission Jul 25, 2019 at 03:54 Date of Discharge Discharge Date: Jul 26, 2019 Admission Diagnosis Left-sided CVA of the distal left M 3 artery -status post TPA Peripheral vascular disease will recheck carotid Dopplers Coronary artery disease with a history of stent placement, we will check an echocardiogram Tobaccoism non-curtailed counseling Plan for speech therapy,occupational therapy, physical therapy and tobacco cessation counseling Primary Care No,Local Physician Discharge Summary Procedures/Consulations Dr Staton- Cardiology Discharge Physical Exam Allergies: Coded Allergies: No Known Drug Allergies (Unverified , 01/22/18) Vitals & I&Os Vital Signs Date Time Temp Pulse Resp B/P (MAP) Pulse Ox O2 Delivery O2 Flow Rate FiO2 07/26/19 12:00 98 Room Air 07/26/19 11:35 37.4 07/26/19 07:12 52 07/26/19 04:50 20 107/74 (85) General Appearance: No Apparent Distress, WD/WN Cardiovascular: Regular Rate, Rhythm, No Murmur Neurologic/Psychiatric: Alert, Oriented x3, Other (dysarthric) Hospital Course Pt was admitted due to an acute CVA. He presented within the window for TPA so this was administered and he had near resolution of his symptoms. He was seen by PT/OT/LABORATORY [facility] and IRU was consulted. Fortunately he returned to near 95% his baseline and was functionally independent with PT. As this was his second stroke at his age cardiology was consulted for evaluation for underlying arrhythmia as cause of cryptogenic stroke. He was started on high intensity statin, antiplatelet therapy, and beta basilio upon discharge. Labs (last 24 hrs) Laboratory Tests 07/26/19 05:25: White Blood Count 8.0, Red Blood Count 4.97, Hemoglobin 15.5, Hematocrit 44, Mean Corpuscular Volume 89, Mean Corpuscular Hemoglobin 31, Mean Corpuscular Hemoglobin Concent 35, Red Cell Distribution Width 13.8, Platelet Count 206, Mean Platelet Volume 11.1H, Neutrophils (%) (Auto) 63, Lymphocytes (%) (Auto) 24, Monocytes (%) (Auto) 10, Eosinophils (%) (Auto) 4, Basophils (%) (Auto) 0, Neutrophils # (Auto) 5.0, Lymphocytes # (Auto) 1.9, Monocytes # (Auto) 0.8, Eosinophils # (Auto) 0.3, Basophils # (Auto) 0.0, Sodium Level 141, Potassium Level 4.4, Chloride Level 109H, Carbon Dioxide Level 22, Anion Gap 10, Blood Urea Nitrogen 10, Creatinine 0.85, Estimat Glomerular Filtration Rate > 60, BUN/Creatinine Ratio 12, Glucose Level 87, Calcium Level 8.8, Phosphorus Level 2.4, Magnesium Level 1.9, Triglycerides Level 94, Cholesterol Level 149, LDL Cholesterol Direct 114, VLDL Cholesterol 19, HDL Cholesterol 31L Patient resulted labs reviewed. Pending Labs Laboratory Tests 07/26/19 05:25: White Blood Count 8.0, Red Blood Count 4.97, Hemoglobin 15.5, Hematocrit 44, Mean Corpuscular Volume 89, Mean Corpuscular Hemoglobin 31, Mean Corpuscular Hemoglobin Concent 35, Red Cell Distribution Width 13.8, Platelet Count 206, Mean Platelet Volume 11.1, Neutrophils (%) (Auto) 63, Lymphocytes (%) (Auto) 24, Monocytes (%) (Auto) 10, Eosinophils (%) (Auto) 4, Basophils (%) (Auto) 0, Neutrophils # (Auto) 5.0, Lymphocytes # (Auto) 1.9, Monocytes # (Auto) 0.8, Eosinophils # (Auto) 0.3, Basophils # (Auto) 0.0, Sodium Level 141, Potassium Level 4.4, Chloride Level 109, Carbon Dioxide Level 22, Anion Gap 10, Blood Urea Nitrogen 10, Creatinine 0.85, Estimat Glomerular Filtration Rate > 60, BUN/Creatinine Ratio 12, Glucose Level 87, Calcium Level 8.8, Phosphorus Level 2.4, Magnesium Level 1.9, Triglycerides Level 94, Cholesterol Level 149, LDL Cholesterol Direct 114, VLDL Cholesterol 19, HDL Cholesterol 31 Imaging: Reviewed Imaging Report Discussion & Recommendations Discharge Planning: >30 minutes discharge planning Discharge Home Medications: Active Scripts Active No Active Prescriptions or Reported Medications Instructions to patient/family Please see electronic discharge instructions given to patient. Clinical Quality Measures DVT/VTE Risk/Contraindication: Risk Factor Score Per Nursin RFS Level Per Nursing on Admit: 1=Low/No VTE PPX Stroke: Date of last known well: Jul 25, 2019 BINU ROUSE MD Jul 26, 2019 12:53
[2019-07-26] MEDS ORDERED: ASPI-983 PO (13:56)
[2019-07-26] MEDS ORDERED: CLOP75TA28 PO (13:56)
[2019-07-26] MEDS ORDERED: LOSA25TA41 PO (13:56)
[2019-07-26] MEDS ORDERED: MTP25TSR PO (13:56)
[2019-07-26] MEDS ORDERED: ATOR80TA76 PO (13:56)
--- NOTE | 2019-07-26 16:15 | NUR ---
SANTINO MEDEIROS demonstrates understanding of discharge instructions and accurately returns instructions upon questioning. Copy of Post-Discharge Instructions and Medication Discharge Instructions given to patient. SANTINO MEDEIROS is able to manage continuing needs after discharge. Patients belongings returned to patient. Skin dry and intact; no breakdown noted. Patient discharged from [facility]- on 07/26/19 at 1616. SANTINO MEDEIROS left floor via wheelchair, accompanied by NEVA Zimmerman. IV removed from right AC space prior to discharge.
[2019-07-27] MEDS ORDERED: LOSARTAN 25 MG (COZAAR) TAB PO SCH (09:00)
[2019-07-27] MEDS ORDERED: CLOPIDOGREL 75 MG (PLAVIX) TABLET PO SCH (09:00)
== END 2019-07-26 16:30 | disposition home or self-care (01) | DRG 62 ==
LOC: EDUNIT# 02:04 → ER 02:06 → ICU 03:54
PROVIDERS: ADMIT Internal Medicine; ATTEND Internal Medicine
DX: I63.512 Cerebral infarction due to unspecified occlusion or stenosis of left middle cerebral artery (principal); I50.22 Chronic systolic (congestive) heart failure; R47.01 Aphasia; R47.1 Dysarthria and anarthria; R29.702 NIHSS score 2; I25.5 Ischemic cardiomyopathy; I25.10 Atherosclerotic heart disease of native coronary artery without angina pectoris; F17.210 Nicotine dependence, cigarettes, uncomplicated; I73.9 Peripheral vascular disease, unspecified; Z95.5 Presence of coronary angioplasty implant and graft; I25.2 Old myocardial infarction; E78.5 Hyperlipidemia, unspecified; Z91.19 Patient's noncompliance with other medical treatment and regimen
CPT/HCPCS: 36415; 70450; 70496; 70498; 70551; 71045; 80048; 80053; 80061; 81000; 82962; 83735; 84100; 84484; 85025; 85379; 85610; 85730; 92977; 93005; 93041; 93306; 93880; 99291